=== PATIENT | male | born 1960 | race Caucasian/White ===

== ENCOUNTER 2017-08-31 06:59 | Day surgery (SDC) | payer OTHER ==
[2017-08-30 16:58] VITALS: BMI 22.4
[2017-08-31] MEDS ORDERED: Lidocaine 1% (PF) 30 ML VIAL ONE (08:44)
[2017-08-31] MEDS ORDERED: Fentanyl 100 MCG/2 ML VIAL ONE (09:13)
[2017-08-31] MEDS ORDERED: Midazolam HCl 2 mg/2 ml Vial ONE (09:13)
[2017-08-31] MEDS ORDERED: Dexamethasone 20 MG/5 ML VIAL ONE (14:40)
[2017-08-31] MEDS ORDERED: PROPOFOL 200 MG/20 ML VIAL ONE (14:40)
[2017-08-31] MEDS ORDERED: Lidocaine 1% PF 5 ML VIAL ONE (14:40)
[2017-08-31] MEDS ORDERED: Ondansetron HCl/PF 4 MG/2 ML Vial ONE (14:40)
[2017-08-31] MEDS ORDERED: Glycopyrrolate 0.2 MG/ML 5 ML SYRINGE ONE (14:40)
--- NOTE | 2017-09-01 11:06 | OP ---
DATE OF SERVICE: 08/31/2017 SERVICE: Pulmonary Medicine. PROCEDURE: Fiberoptic bronchoscopy with: 1. Visual airway inspection. 2. Bronchial wash from the right mainstem bronchus. 3. Endobronchial biopsies of the right mainstem endobronchial lesion. PREPROCEDURE DIAGNOSIS: Pulmonary mass. POSTPROCEDURE DIAGNOSIS: Pulmonary mass. PROCEDURE PAPER GOODS MACHINE OPERATOR: Jack Hernandez M.D. MEDICATIONS USED: For list of medications, please refer to anesthesia documentation. PREANESTHESIA ASSESSMENT: An H&P had been performed. The patient's medications and allergies were r eviewed. Informed consent was obtained after discussing the risks, benefits, and rationale for perfo rming the procedure as well as alternative options. DESCRIPTION OF PROCEDURE: A timeout was performed, identifying the correct procedure and patient wit h name and date of . A diagnostic fiberoptic bronchoscope was introduced through the 8.0 endotr acheal tube. The bronchoscope was advanced into the trachea where a tracheobronchial tree inspection was carried out. There was clear identification of the left upper lobe, lingula, left lower lobe. The right mainstem bronchus was completely obliterated by an endobronchial mass. Multiple endobronch ial biopsies were obtained at this location. Significant wash was obtained. Through our biopsies, a very large piece of this tumor was successfully removed. I opened up the right bronchus intermedius . The distal segments seemed to be intact. The right upper lobe was completely obliterated by a mas s. I could not pass any instruments distal to it. Hemostasis was verified and bronchoscope was subs equently removed from the patient. FINDINGS: 1. Large endobronchial mass obliterated the right mainstem bronchus. After debulking, the RBI was i ntact, but the right upper lobe had a dense mass in it that could not pass instruments distal to it. 2. Secretions were thick and minimal. SPECIMENS OBTAINED: 1. BAL and gram stain on the right bronchial wash. 2. Cytology on bronchial wash. 3. Endobronchial biopsy. COMPLICATIONS: None. ESTIMATED BLOOD LOSS: 10 mL. FLUOROSCOPY TIME: None. DISPOSITION: Patient will be discharged home with post-procedure instructions. He will return to [facility] as previously directed.
== END 2017-08-31 12:05 | disposition home or self-care (01) ==
LOC: SDC 06:59
PROVIDERS: ATTEND Internal Medicine
PROC: 0B9D8ZX Drainage of Right Middle Lung Lobe, Via Natural or Artificial Opening Endoscopic, Diagnostic (ICD-10-PCS; principal; 2017-08-31)
PROC: 0BB38ZX Excision of Right Main Bronchus, Via Natural or Artificial Opening Endoscopic, Diagnostic (ICD-10-PCS; principal; 2017-08-31)
DX: C34.02 Malignant neoplasm of left main bronchus (principal); Z79.899 Other long term (current) drug therapy
CPT/HCPCS: 87070; 87077; 87205; 88112; 88305; 88313; 88341; 88342; J1100; J2001; J2250; J2405; J2704; J3010; J7620

== ENCOUNTER 2017-12-15 10:05 | Outpatient (CLI) | payer OTHER ==
--- NOTE | 2017-12-15 12:25 | PET ---
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 TECHNIQUE: A PET CT was performed from the skull base through the mid thigh after administration of 15.8 mCi F1 8-FDG. FINDINGS: There is volume loss in the right thorax compared to the left. This is likely secondary to postobstru ctive atelectasis secondary to a mass within the right mainstem bronchus. This mass is visualized and is hypermetabolic with a max SUV value of 14.2. There are enlarged right mediastinal lymph nodes. Th e largest is seen in the right pretracheal location and has a max SUV value of 9.0. There are areas o f consolidation in the right lung. In the right apex, this area of consolidation has a max SUV value of 3.0. In the right lower lobe, this area of consolidation has a max SUV value of 3.7. No pleural effusion is seen. No hypermetabolic left pulmonary masses are seen. No hypermetabolic or suspicious lesions are seen in the neck. No suspicious or hypermetabolic lesions are seen in the abdomen or pelvis. There is hypermetabolic activity in the right aspect of the scrotum with a max SUV value of 2.5. This is nonspecific. The patient appears to have a hydrocele. No suspicious areas of hypermetabolic activity are seen within the bones. Degenerative changes are se en in the spine. IMPRESSION: 1. There is a right bronchial mass with metastatic disease to right mediastinal lymph nodes. There a re areas of hypermetabolic activity within the right upper lobe and right lower lobe. This may repres ent postobstructive infection or spread of malignancy to the upper and lower lobes. 2. Nonspecific hypermetabolic activity in the scrotum. A scrotal ultrasound is recommended for [facility] evaluation. POS: [facility]
== END 2017-12-15 10:06 | disposition home or self-care (01) ==
LOC: PET 10:05
PROVIDERS: ATTEND Internal Medicine Medical Oncology
DX: C34.90 Malignant neoplasm of unspecified part of unspecified bronchus or lung (principal); C77.9 Secondary and unspecified malignant neoplasm of lymph node, unspecified; J98.09 Other diseases of bronchus, not elsewhere classified
CPT/HCPCS: 78815; A9552

== ENCOUNTER 2017-12-19 07:51 | Outpatient (CLI) | payer OTHER ==
[2017-12-19] MEDS ORDERED: Gadobenate Dimeglumine 529 MG/1 ML (20ML VIAL) ONE (09:00)
--- NOTE | 2017-12-19 10:32 | MRI ---
BRAIN MRI WITH AND WITHOUT CONTRAST: HISTORY: Squamous cell carcinoma of the lung. Evaluate for brain metastases. COMPARISON: None. TECHNIQUE: A brain MRI is performed with and without intravenous Gadolinium administration. Multisequential, mu ltiplanar imaging is performed. FINDINGS: No hemorrhage on the axial gradient echo sequence. No parenchymal mass, mass effect, or midline shif t. Brain volume is age appropriate. Cortical burciaga white matter differentiation is preserved. Ventricles and sulci are patent and symmetric. The central arterial flow voids are maintained. Absent restricted diffusion. The calvarium appears to have a normal marrow signal intensity. Midline brain parenchymal structures are unremarkable. No significant T2 or FLAIR white matter hyperintensities. Mild mucosal thickening of the paranasal sinuses. Adequate mastoid air cell aeration. No pathologic enhancement of the brain parenchyma. IMPRESSION: 1. Mild mucosal thickening of the sinuses. 2. No pathologic enhancement of the brain parenchyma. POS: [facility]
== END 2017-12-19 07:52 | disposition home or self-care (01) ==
LOC: SCSMRI 07:51
PROVIDERS: ATTEND Internal Medicine Hematology & Oncology
DX: C34.01 Malignant neoplasm of right main bronchus (principal); J34.89 Other specified disorders of nose and nasal sinuses
CPT/HCPCS: 70553; A9579

== ENCOUNTER 2018-01-08 08:46 | Day surgery (SDC) | payer SELFPAY ==
[2018-01-08] MEDS ORDERED: Sodium Chloride 0.9% 30 ML ONE (09:17)
[2018-01-08] MEDS ORDERED: SODIUM CHLORIDE 0.9% IV SCH (09:30)
[2018-01-08] MEDS ORDERED: CISPLATIN IV SCH (09:30)
[2018-01-08] MEDS ORDERED: Dexamethasone 20 MG in Sodium Chloride 0.9% 50 ML IVPB SCH (09:30)
[2018-01-08] MEDS ORDERED: Palonosetron HCl 0.25 MG in Sodium Chloride 0.9% 50 ML IVPB SCH (09:30)
[2018-01-08] MEDS ORDERED: MANNITOL IV SCH (09:30)
[2018-01-08] MEDS ORDERED: SODIUM CHLORIDE 0.9% IVPB SCH (09:45)
[2018-01-08] MEDS ORDERED: ETOPOSIDE IVPB SCH (09:45)
[2018-01-08] MEDS ORDERED: Fosaprepitant Dimeglumine 150 MG in Sodium Chloride 0.9% 250 ML 150 ML IVPB SCH (09:45)
[2018-01-08] MEDS ORDERED: Dexamethasone Sod Phosphate 20 MG in Sodium Chloride 0.9% 50 ML IVPB SCH (10:15)
[2018-01-08 11:29] VITALS: BP 141/82; TEMP 98.2
== END 2018-01-08 17:19 | disposition home or self-care (01) ==
LOC: ONC/OP 08:46
PROVIDERS: ATTEND Internal Medicine Hematology & Oncology
DX: Z51.11 Encounter for antineoplastic chemotherapy (principal); C34.01 Malignant neoplasm of right main bronchus; Z87.891 Personal history of nicotine dependence; Z79.899 Other long term (current) drug therapy
CPT/HCPCS: 96366; 96375; 96413; 96415; 96417; A4216; J1100; J1453; J2150; J2469; J3480; J7050; J9060; J9181

== ENCOUNTER 2018-01-09 09:47 | Day surgery (SDC) | payer OTHER, SELFPAY ==
[2018-01-09] MEDS ORDERED: SODIUM CHLORIDE 0.9% IVPB SCH (10:00)
[2018-01-09] MEDS ORDERED: ETOPOSIDE IVPB SCH (10:00)
[2018-01-09 10:40] VITALS: BP 144/79; TEMP 98.1
== END 2018-01-09 13:53 | disposition home or self-care (01) ==
LOC: ONC/OP 09:47
PROVIDERS: ATTEND Internal Medicine
DX: Z51.11 Encounter for antineoplastic chemotherapy (principal); C34.01 Malignant neoplasm of right main bronchus; Z79.899 Other long term (current) drug therapy
CPT/HCPCS: 96413; J7050; J9181

== ENCOUNTER 2018-01-10 09:45 | Day surgery (SDC) | payer OTHER, SELFPAY ==
[2018-01-10] MEDS ORDERED: Sodium Chloride 0.9% 20 ML ONE (09:49)
[2018-01-10] MEDS ORDERED: SODIUM CHLORIDE 0.9% IVPB SCH (10:00)
[2018-01-10] MEDS ORDERED: ETOPOSIDE IVPB SCH (10:00)
[2018-01-10 10:58] VITALS: BP 134/72; TEMP 98.3
== END 2018-01-10 13:06 | disposition home or self-care (01) ==
LOC: ONC/OP 09:45
PROVIDERS: ATTEND Internal Medicine
DX: Z51.11 Encounter for antineoplastic chemotherapy (principal); C34.01 Malignant neoplasm of right main bronchus; Z79.899 Other long term (current) drug therapy
CPT/HCPCS: 96413; A4216; J7050; J9181

== ENCOUNTER 2018-01-11 09:56 | Day surgery (SDC) | payer OTHER, SELFPAY ==
[2018-01-11] MEDS ORDERED: Sodium Chloride 0.9% 20 ML ONE (10:01)
[2018-01-11 10:06] VITALS: BP 153/82; TEMP 98.1
[2018-01-11] MEDS ORDERED: SODIUM CHLORIDE 0.9% IVPB SCH ×2 (10:15)
[2018-01-11] MEDS ORDERED: ONDANSETRON IVPB SCH (10:15)
[2018-01-11] MEDS ORDERED: DEXAMETHASONE IVPB SCH (10:15)
[2018-01-11] MEDS ORDERED: ETOPOSIDE IVPB SCH (10:15)
[2018-01-11] MEDS ORDERED: Dexamethasone Sod Phosphate 20 MG, Ondansetron 2MG/ML MDV 10 MG in Sodium Chloride 0.9%... IVPB SCH (11:00)
== END 2018-01-11 19:26 | disposition home or self-care (01) ==
LOC: ONC/OP 09:56
PROVIDERS: ATTEND Internal Medicine
DX: Z51.11 Encounter for antineoplastic chemotherapy (principal); C34.01 Malignant neoplasm of right main bronchus
CPT/HCPCS: 96375; 96413; J1100; J2405; J7050; J9181

== ENCOUNTER 2018-01-12 11:28 | Day surgery (SDC) | payer OTHER, SELFPAY ==
[2018-01-12] MEDS ORDERED: SODIUM CHLORIDE 0.9% IVPB SCH (11:30)
[2018-01-12] MEDS ORDERED: ETOPOSIDE IVPB SCH (11:30)
[2018-01-12] MEDS ORDERED: Ondansetron 2MG/ML MDV 10 MG in Sodium Chloride 0.9% 50 ML IVPB SCH (11:30)
[2018-01-12] MEDS ORDERED: Sodium Chloride 0.9% 20 ML ONE (12:56)
[2018-01-12 13:08] VITALS: BP 125/74; TEMP 98.3
== END 2018-01-12 13:25 | disposition home or self-care (01) ==
LOC: ONC/OP 11:28
PROVIDERS: ATTEND Internal Medicine
DX: Z51.11 Encounter for antineoplastic chemotherapy (principal); C34.01 Malignant neoplasm of right main bronchus
CPT/HCPCS: 96367; 96413; J2405; J7050; J9181

== ENCOUNTER 2018-01-15 09:57 | Day surgery (SDC) | payer OTHER, SELFPAY ==
[2018-01-15] MEDS ORDERED: Sodium Chloride 0.9% 20 ML ONE (10:01)
[2018-01-15] MEDS ORDERED: CISPLATIN IV SCH (10:15)
[2018-01-15] MEDS ORDERED: Dexamethasone 20 MG in Sodium Chloride 0.9% 50 ML IVPB SCH (10:15)
[2018-01-15] MEDS ORDERED: PALONOSETRON HCL 0.05 MG/ML 5 ML VIAL IVP SCH (10:15)
[2018-01-15] MEDS ORDERED: Fosaprepitant Dimeglumine 150 MG in Sodium Chloride 0.9% 250 ML 150 ML IVPB SCH (10:15)
[2018-01-15] MEDS ORDERED: SODIUM CHLORIDE 0.9% IV SCH (10:15)
[2018-01-15] MEDS ORDERED: MANNITOL IV SCH (10:15)
[2018-01-15] MEDS ORDERED: POTASSIUM CHLORIDE IVPB SCH (10:15)
[2018-01-15] MEDS ORDERED: SODIUM CHLORIDE 0.9% IVPB SCH (10:15)
[2018-01-15 10:16] VITALS: BP 119/77; TEMP 99.9
[2018-01-15] MEDS ORDERED: Dexamethasone Sod Phosphate 20 MG in Sodium Chloride 0.9% 50 ML IVPB SCH (10:30)
== END 2018-01-15 16:50 | disposition home or self-care (01) ==
LOC: ONC/OP 09:57
PROVIDERS: ATTEND Internal Medicine
DX: Z51.11 Encounter for antineoplastic chemotherapy (principal); C34.01 Malignant neoplasm of right main bronchus; Z79.899 Other long term (current) drug therapy
CPT/HCPCS: 96366; 96367; 96375; 96413; 96415; J1100; J1453; J2150; J2469; J3480; J7050; J9060

== ENCOUNTER 2018-02-05 09:21 | Day surgery (SDC) | payer OTHER, SELFPAY ==
[2018-02-05] MEDS ORDERED: MANNITOL IV SCH (09:45)
[2018-02-05] MEDS ORDERED: CISPLATIN IV SCH (09:45)
[2018-02-05] MEDS ORDERED: SODIUM CHLORIDE 0.9% IV SCH (09:45)
[2018-02-05] MEDS ORDERED: Dexamethasone 10 MG/ML VIAL SLOW IVP SCH (09:45)
[2018-02-05] MEDS ORDERED: SODIUM CHLORIDE 0.9% IVPB SCH (09:45)
[2018-02-05] MEDS ORDERED: ETOPOSIDE IVPB SCH (09:45)
[2018-02-05] MEDS ORDERED: PALONOSETRON HCL 0.05 MG/ML 5 ML VIAL IVP SCH (09:45)
[2018-02-05 09:51] VITALS: BP 134/90; TEMP 98.7
[2018-02-06] MEDS ORDERED: SODIUM CHLORIDE 0.9% IVPB SCH (10:00)
[2018-02-06] MEDS ORDERED: ETOPOSIDE IVPB SCH (10:00)
== END 2018-02-05 16:59 | disposition home or self-care (01) ==
LOC: ONC/OP 09:21
PROVIDERS: ATTEND Internal Medicine Hematology & Oncology
DX: Z51.11 Encounter for antineoplastic chemotherapy (principal); C34.01 Malignant neoplasm of right main bronchus; Z79.899 Other long term (current) drug therapy
CPT/HCPCS: 96361; 96367; 96375; 96413; 96417; J1100; J1453; J2150; J2469; J7050; J9060; J9181

== ENCOUNTER 2018-02-06 09:37 | Day surgery (SDC) | payer OTHER ==
[2018-02-06] MEDS ORDERED: SODIUM CHLORIDE 0.9% IVPB SCH (09:45)
[2018-02-06] MEDS ORDERED: ETOPOSIDE IVPB SCH (09:45)
[2018-02-06] MEDS ORDERED: Sodium Chloride 0.9% 20 ML ONE (10:09)
[2018-02-06 10:22] VITALS: BP 134/84; TEMP 98.1
== END 2018-02-06 14:55 | disposition home or self-care (01) ==
LOC: ONC/OP 09:37
PROVIDERS: ATTEND Internal Medicine Hematology & Oncology
DX: Z51.11 Encounter for antineoplastic chemotherapy (principal); C34.01 Malignant neoplasm of right main bronchus; Z79.899 Other long term (current) drug therapy
CPT/HCPCS: 96413; J7050; J9181

== ENCOUNTER 2018-02-07 08:34 | Day surgery (SDC) | payer OTHER ==
[2018-02-07 08:42] VITALS: BP 144/85; TEMP 98.6
[2018-02-07] MEDS ORDERED: SODIUM CHLORIDE 0.9% IVPB SCH (09:00)
[2018-02-07] MEDS ORDERED: ETOPOSIDE IVPB SCH (09:00)
== END 2018-02-07 11:38 | disposition home or self-care (01) ==
LOC: ONC/OP 08:34
PROVIDERS: ATTEND Internal Medicine Hematology & Oncology
DX: Z51.11 Encounter for antineoplastic chemotherapy (principal); C34.01 Malignant neoplasm of right main bronchus
CPT/HCPCS: 96413; J7050; J9181

== ENCOUNTER 2018-02-08 09:06 | Day surgery (SDC) | payer OTHER ==
[2018-02-08] MEDS ORDERED: Dexamethasone 20 MG/5 ML VIAL SLOW IVP SCH (09:45)
[2018-02-08] MEDS ORDERED: Ondansetron PF 4 MG/2 ML Vial SLOW IVP SCH (09:45)
[2018-02-08] MEDS ORDERED: ETOPOSIDE IVPB SCH (09:45)
[2018-02-08] MEDS ORDERED: SODIUM CHLORIDE 0.9% IVPB SCH (09:45)
[2018-02-08 09:47] VITALS: BP 152/82; TEMP 98.4
[2018-02-08] MEDS ORDERED: Dexamethasone 10 MG/ML VIAL SLOW IVP SCH (10:15)
[2018-02-08] MEDS ORDERED: Sodium Chloride 0.9% 40 ML ONE (10:18)
== END 2018-02-08 11:53 | disposition home or self-care (01) ==
LOC: ONC/OP 09:06
PROVIDERS: ATTEND Internal Medicine Hematology & Oncology
DX: Z51.11 Encounter for antineoplastic chemotherapy (principal); C34.01 Malignant neoplasm of right main bronchus
CPT/HCPCS: 96375; 96413; J1100; J2405; J7050; J9181

== ENCOUNTER 2018-02-09 08:27 | Day surgery (SDC) | payer OTHER ==
[2018-02-09] MEDS ORDERED: Sodium Chloride 0.9% 20 ML ONE (08:36)
[2018-02-09] MEDS ORDERED: SODIUM CHLORIDE 0.9% IVPB SCH (08:45)
[2018-02-09] MEDS ORDERED: Ondansetron 2MG/ML MDV 10 MG in Sodium Chloride 0.9% 50 ML IVPB SCH (08:45)
[2018-02-09] MEDS ORDERED: ETOPOSIDE IVPB SCH (08:45)
[2018-02-09 16:43] VITALS: BP 118/72; TEMP 98.5
== END 2018-02-09 16:43 | disposition home or self-care (01) ==
LOC: ONC/OP 08:27
PROVIDERS: ATTEND Internal Medicine Hematology & Oncology
DX: Z51.11 Encounter for antineoplastic chemotherapy (principal); C34.01 Malignant neoplasm of right main bronchus
CPT/HCPCS: 96375; 96413; J2405; J7050; J9181

== ENCOUNTER 2018-02-12 08:26 | Day surgery (SDC) | payer OTHER ==
[2018-02-12] MEDS ORDERED: Sodium Chloride 0.9% 40 ML ONE (08:31)
[2018-02-12 09:26] LABS: #Eosinphils 0.1 thou/uL (0.0-0.7); #Lymphocytes 0.3 thou/uL (1.20-3.40); #Neutrophils 4.6 thou/uL (1.40-6.50); %Basophils 0.1 % (0.0-1.0); %Eosinophils 1.4 % (0.0-10.0); %Lymphocytes 6.4 % (21.0-51.0); %Monocytes 0.4 % (0.0-10.0); %Neutrophils 91.6 % (42.0-75.0); Hemoglobin 13.4 g/dL (14.0-18.0); Mean Corpuscular HGB CONC 33.4 g/dL (32.0-36.0); Mean Corpuscular Hemoglobin 29.9 pg (27.0-31.0); Mean Corpuscular Volume 89.6 fL (78.0-98.0); Mean Platelet Volume 5.8 fL (7.4-10.4); Platelet Count 389 thou/uL (130-400); RBC Distribution Width 12.3 % (11.5-14.5); Red Blood Cell (RBC) Count 4.49 mill/uL (4.70-6.10)
[2018-02-12 09:42] LABS: ALT (SGPT) 22 U/L (8-55); AST (SGOT) 14 U/L (5-34); Albumin 4.2 g/dL (3.5-5.0); Alkaline Phosphatase 107 U/L (40-150); Anion Gap 14 mmol/L (10-20); BUN (Urea Nitrogen) 19 mg/dL (8.4-25.7); Bilirubin, Total 0.7 mg/dL (0.2-1.2); Calc. Creatinine Clearance 0 mL/min (70-130); Calcium 9.6 mg/dL (7.8-10.44); Carbon Dioxide 25 mmol/L (22-29); Chloride 103 mmol/L (98-107); Estimated GFR-MDRD 68; Globulin 2.9 g/dL (2.4-3.5); Glucose 108 mg/dL (70-105); LDH 156 U/L (125-220); Potassium 3.9 mmol/L (3.5-5.1); Protein, Total 7.1 g/dL (6.0-8.3); Sodium 138 mmol/L (136-145); Uric Acid 5.6 mg/dL (3.5-7.2)
[2018-02-12] MEDS ORDERED: PALONOSETRON HCL 0.05 MG/ML 5 ML VIAL IVP SCH (09:45)
[2018-02-12] MEDS ORDERED: Dexamethasone 10 MG/ML VIAL SLOW IVP SCH (09:45)
[2018-02-12] MEDS ORDERED: CISPLATIN IV SCH (10:30)
[2018-02-12] MEDS ORDERED: SODIUM CHLORIDE 0.9% IV SCH (10:30)
[2018-02-12] MEDS ORDERED: MANNITOL IV SCH (10:30)
[2018-02-12 12:50] VITALS: BP 122/83; TEMP 98.1
== END 2018-02-12 15:09 | disposition home or self-care (01) ==
LOC: ONC/OP 08:26
PROVIDERS: ATTEND Internal Medicine Hematology & Oncology
DX: Z51.11 Encounter for antineoplastic chemotherapy (principal); C34.01 Malignant neoplasm of right main bronchus
CPT/HCPCS: 80053; 83615; 84550; 85025; 96367; 96375; 96413; 96415; J1100; J1453; J2150; J2469; J3480; J7050; J9060

== ENCOUNTER 2018-03-21 13:29 | Day surgery (SDC) | payer OTHER ==
[2018-03-21 13:53] VITALS: BP 158/84; TEMP 98.2
[2018-03-21] MEDS ORDERED: SODIUM CHLORIDE 0.9% IV SCH (14:00)
[2018-03-21] MEDS ORDERED: DURVALUMAB IV SCH (14:00)
== END 2018-03-21 15:36 | disposition home or self-care (01) ==
LOC: ONC/OP 13:29
PROVIDERS: ATTEND Internal Medicine Hematology & Oncology
DX: Z51.11 Encounter for antineoplastic chemotherapy (principal); C34.01 Malignant neoplasm of right main bronchus; Z87.891 Personal history of nicotine dependence; Z79.899 Other long term (current) drug therapy
CPT/HCPCS: 96413; C9492; J7050

== ENCOUNTER 2018-04-02 08:21 | Day surgery (SDC) | payer OTHER, SELFPAY ==
[2018-04-02] MEDS ORDERED: Sodium Chloride 0.9% 30 ML ONE (08:30)
[2018-04-02] MEDS ORDERED: SODIUM CHLORIDE 0.9% IV SCH (09:30)
[2018-04-02] MEDS ORDERED: DURVALUMAB IV SCH (09:30)
== END 2018-04-02 11:36 | disposition home or self-care (01) ==
LOC: ONC/OP 08:21
PROVIDERS: ATTEND Internal Medicine Hematology & Oncology
DX: Z51.12 Encounter for antineoplastic immunotherapy (principal); C34.01 Malignant neoplasm of right main bronchus
CPT/HCPCS: 96413; C9492; J7050

== ENCOUNTER 2018-04-16 09:49 | Day surgery (SDC) | payer OTHER ==
[2018-04-16] MEDS ORDERED: Sodium Chloride 0.9% 20 ML ONE (10:02)
[2018-04-16] MEDS ORDERED: SODIUM CHLORIDE 0.9% IV SCH (10:30)
[2018-04-16] MEDS ORDERED: DURVALUMAB IV SCH (10:30)
[2018-04-16 10:43] VITALS: BP 165/79; TEMP 97.6
== END 2018-04-16 12:59 | disposition home or self-care (01) ==
LOC: ONC/OP 09:49
PROVIDERS: ATTEND Internal Medicine Hematology & Oncology
DX: Z51.12 Encounter for antineoplastic immunotherapy (principal); C34.01 Malignant neoplasm of right main bronchus; Z87.891 Personal history of nicotine dependence
CPT/HCPCS: 99211; C9492; G0463; J7050; J9173

== ENCOUNTER 2018-04-18 08:07 | Day surgery (SDC) | payer OTHER ==
[2018-04-18] MEDS ORDERED: Sodium Chloride 0.9% 20 ML ONE (08:13)
[2018-04-18] MEDS ORDERED: SODIUM CHLORIDE 0.9% IV SCH ×2 (08:15→08:30)
[2018-04-18] MEDS ORDERED: DURVALUMAB IV SCH ×2 (08:15→08:30)
[2018-04-18 10:33] VITALS: BP 103/70; TEMP 98.6
== END 2018-04-18 10:41 | disposition home or self-care (01) ==
LOC: ONC/OP 08:07
PROVIDERS: ATTEND Internal Medicine Hematology & Oncology
DX: Z51.12 Encounter for antineoplastic immunotherapy (principal); C34.01 Malignant neoplasm of right main bronchus; Z79.899 Other long term (current) drug therapy; Z87.891 Personal history of nicotine dependence
CPT/HCPCS: 96413; C9492; J7050

== ENCOUNTER 2018-04-30 08:22 | Day surgery (SDC) | payer OTHER ==
[2018-04-30] MEDS ORDERED: Sodium Chloride 0.9% 20 ML ONE (08:33)
[2018-04-30] MEDS ORDERED: SODIUM CHLORIDE 0.9% IV SCH (09:15)
[2018-04-30] MEDS ORDERED: DURVALUMAB IV SCH (09:15)
== END 2018-04-30 09:51 | disposition home or self-care (01) ==
LOC: ONC/OP 08:22
PROVIDERS: ATTEND Internal Medicine Hematology & Oncology
DX: Z51.12 Encounter for antineoplastic immunotherapy (principal); C34.01 Malignant neoplasm of right main bronchus
CPT/HCPCS: C9492; J7050; J9173

== ENCOUNTER 2018-05-02 08:16 | Day surgery (SDC) | payer OTHER ==
[2018-05-02] MEDS ORDERED: Sodium Chloride 0.9% 20 ML ONE (08:27)
[2018-05-02 08:37] VITALS: BP 114/77; TEMP 98.7
[2018-05-02] MEDS ORDERED: DURVALUMAB IV SCH (09:00)
[2018-05-02] MEDS ORDERED: SODIUM CHLORIDE 0.9% IV SCH (09:00)
== END 2018-05-02 12:42 | disposition home or self-care (01) ==
LOC: ONC/OP 08:16
PROVIDERS: ATTEND Internal Medicine Hematology & Oncology
DX: Z51.12 Encounter for antineoplastic immunotherapy (principal); C34.01 Malignant neoplasm of right main bronchus; C34.11 Malignant neoplasm of upper lobe, right bronchus or lung; Z87.891 Personal history of nicotine dependence; Z79.899 Other long term (current) drug therapy
CPT/HCPCS: 96413; C9492; J7050; J9173

== ENCOUNTER 2018-05-16 01:15 | Day surgery (SDC) | payer OTHER ==
[2018-05-16] MEDS ORDERED: SODIUM CHLORIDE 0.9% IV SCH (02:45)
[2018-05-16] MEDS ORDERED: DURVALUMAB IV SCH (02:45)
[2018-05-16] MEDS ORDERED: Sodium Chloride 0.9% 20 ML ONE (08:31)
[2018-05-16 09:36] VITALS: BP 116/68; TEMP 98.4
== END 2018-05-16 11:47 | disposition home or self-care (01) ==
LOC: ONC/OP 01:15
PROVIDERS: ATTEND Internal Medicine Hematology & Oncology
DX: Z51.11 Encounter for antineoplastic chemotherapy (principal); C34.01 Malignant neoplasm of right main bronchus
CPT/HCPCS: 96413

== ENCOUNTER 2018-05-25 08:55 | Outpatient (CLI) | payer OTHER ==
--- NOTE | 2018-05-25 11:11 | CT ---
CHEST CT WITH CONTRAST: HISTORY: Lung cancer. Status post chemotherapy and radiation therapy. The patient is now on maintenance immu notherapy. Evaluate for response to treatment. COMPARISON: 06/20/2016 [facility]. Note, there is a request to compare from a study from September 14, 2017. How ever, this study does not appear to be on the [facility] PACS. CORRELATION: PET imaging 12/15/2017. FINDINGS: There are posttreatment changes compatible with a right upper lobectomy. There is diminished volume in the right hemithorax. There are extensive cystic changes and bronchiectasis in the remaining righ t lung parenchyma. There is consolidation involving the superior aspect of the remaining right lung. There is abnormal soft tissue attenuation in the right paratracheal region and right hilum. There i s corresponding FDG avidity. Findings may represent residual tumor versus post treatment change. He art size is within normal limits. No pericardial fluid. Central pulmonary arteries have appropriate enhancement and luminal diameter. Thoracic aorta and upper abdominal aorta have a normal luminal di ameter. Unremarkable visualized solid organs. Compensatory hyperinflation of the left lung. Emphysematous changes in the left upper lobe. There i s a spiculated nodule in the left lower lobe measuring 1.0 x 1.1 cm. The nodule has developed since the PET scan from 12/15/2017. No lytic or blastic lesions in the osseous structures. IMPRESSION: 1. Post treatment changes involving the right hemithorax. Increased soft tissue density is presumed to represent areas of scar and/or post treatment change. Residual tumor in this region cannot be ex cluded. There is interval development of a nodule in the left lower lobe, worrisome for metastases u ntil proven otherwise. Nodule was not appreciated on the CT used for attenuation correction from a P ET scan of 12/15/2017. 2. Abnormal soft tissue attenuation of the right hilum and right paratracheal region with correspond ing fluorodeoxyglucose avidity. Findings are presumed to represent post-treatment change versus resi dual tumor. POS: [facility]
[2018-05-25] MEDS ORDERED: ISOVUE-370 76%-LOCM 1 ML ONE (16:36)
== END 2018-05-25 08:56 | disposition home or self-care (01) ==
LOC: BICCT 08:55
PROVIDERS: ATTEND Internal Medicine Hematology & Oncology
DX: C34.90 Malignant neoplasm of unspecified part of unspecified bronchus or lung (principal)
CPT/HCPCS: 71260; Q9966

== ENCOUNTER 2018-05-30 00:17 | Day surgery (SDC) | payer OTHER ==
[2018-05-30] MEDS ORDERED: SODIUM CHLORIDE 0.9% IV SCH (02:30)
[2018-05-30] MEDS ORDERED: DURVALUMAB IV SCH (02:30)
[2018-05-30] MEDS ORDERED: Sodium Chloride 0.9% 20 ML ONE (10:13)
[2018-05-30 10:29] VITALS: BP 141/84; TEMP 98.3
== END 2018-05-30 12:01 | disposition home or self-care (01) ==
LOC: ONC/OP 00:17
PROVIDERS: ATTEND Internal Medicine Hematology & Oncology
DX: Z51.11 Encounter for antineoplastic chemotherapy (principal); C34.01 Malignant neoplasm of right main bronchus
CPT/HCPCS: 96413

== ENCOUNTER 2018-06-07 11:05 | Outpatient (CLI) | payer OTHER ==
--- NOTE | 2018-06-07 14:27 | PET ---
PET CT FROM SKULL BASE THROUGH MID THIGHS: INDICATION: History of right lung cancer. RADIOPHARMACEUTICAL: 11.5 mCi F18-FDG IV. TECHNIQUE: PET CT images were obtained from the skull base through the mid thighs following IV administration of the radiopharmaceutical. The CT images were obtained for attenuation correction purposes only. Exam is compared to a prior CT of the thorax performed at [facility] on 05/05 05/22. Comparison is also made with prior CT of the thorax from [facility] dated 06/20. FINDINGS: The biodistribution for the examination appears acceptable. Head/Neck: No hypermetabolic lymphadenopathy or mass is seen within the head or neck region. Thorax: Again seen is significant post therapy changes involving the right hemithorax. There is marked soft t issue prominence seen surrounding the right mainstem bronchus, as well as the lobar and segmental bra nches of the right upper lobe and right middle lobe. There is extensive bronchiectasis seen within th e right middle lobe and right lower lobe. There is scattered emphysema. There is a hypermetabolic right paratracheal lymph node that has decreased in size from the compariso n PET CT dated 12/15/17, where it previously measured 1.5 cm with a peak uptake of 8.97. The lymph no de now measures 9.5 mm with a peak uptake of 3.27 and a mean uptake of 2.64. No additional hypermetab olic lymph node is evident. There is prominent subsegmental volume loss within the right upper lobe. There are areas of subsegmen samreen volume loss within the left lower lobe. There is a new pulmonary nodule within the superior segment of the left lower lobe measuring 7.0 mm w ithout visible FDG uptake. No pleural effusion is evident. Abdomen/Pelvis: No hypermetabolic mass or lymphadenopathy is evident. There is a small gallstone within the gallbladd er. There is a small hypodensity seen within the central posterior right hepatic lobe that is difficu lt to fully characterize, but is stable since 2017 with no suspicious hypermetabolic uptake, likely r eflecting a small cyst. Skin/Osseous Structures: No hypermetabolic skin or osseous lesions identified. IMPRESSION: 1. Findings consistent with response to therapy. There is a significant improvement in the extent of hypermetabolic activity involving the right mainstem bronchus, as well as the right middle lobe bron chus. No residual hypermetabolic activity is noted within these regions. There is prominent soft tiss ue thickening likely related to scar from therapy. The extensive bronchiectasis of the right upper lo be and right middle lobe are again noted. Scattered emphysema is similar appearing. The hypermetaboli c right paratracheal lymph node has significantly reduced in prominence. No hypermetabolic activity i s seen within the subcarinal lymph node previously seen. 2. New 7 mm pulmonary nodule in the left lower lobe. This is below PET resolution threshold. Would r ecommend a short-term CT follow-up in 6-8 weeks to evaluate this pulmonary nodule. 3. No evidence of metastatic disease within the abdomen and pelvis, or skin or osseous structures. POS: [facility]
== END 2018-06-07 11:06 | disposition home or self-care (01) ==
LOC: PET 11:05
PROVIDERS: ATTEND Internal Medicine Hematology & Oncology
DX: C34.91 Malignant neoplasm of unspecified part of right bronchus or lung (principal); R91.1 Solitary pulmonary nodule
CPT/HCPCS: 78815; A9552

== ENCOUNTER 2018-06-13 08:30 | Day surgery (SDC) | payer OTHER, SELFPAY ==
[~2018-06-13 08:30] MED LIST: DURVALUMAB IV SCH; SODIUM CHLORIDE 0.9% IV SCH
[2018-06-13] MEDS ORDERED: Sodium Chloride 0.9% 20 ML ONE (08:49)
[2018-06-13 09:01] VITALS: BP 129/76; TEMP 98.4
== END 2018-06-13 14:58 | disposition home or self-care (01) ==
LOC: ONC/OP 08:30
PROVIDERS: ATTEND Internal Medicine Hematology & Oncology
DX: Z51.12 Encounter for antineoplastic immunotherapy (principal); C34.01 Malignant neoplasm of right main bronchus
CPT/HCPCS: 96413; C9492; J7050; J9173

== ENCOUNTER 2018-06-27 10:28 | Day surgery (SDC) | payer OTHER ==
[2018-06-27] MEDS ORDERED: Sodium Chloride 0.9% 20 ML ONE (10:33)
[2018-06-27 10:45] VITALS: BP 151/87; TEMP 98.6
== END 2018-06-27 13:10 | disposition home or self-care (01) ==
LOC: ONC/OP 10:28
PROVIDERS: ATTEND Internal Medicine Hematology & Oncology
DX: Z51.12 Encounter for antineoplastic immunotherapy (principal); C34.01 Malignant neoplasm of right main bronchus; Z87.891 Personal history of nicotine dependence
CPT/HCPCS: 96413

== ENCOUNTER 2018-07-18 09:19 | Day surgery (SDC) | payer OTHER ==
[2018-07-18 09:37] VITALS: BP 156/71; TEMP 98
[2018-07-18] MEDS ORDERED: DURVALUMAB IV SCH (09:45)
[2018-07-18] MEDS ORDERED: SODIUM CHLORIDE 0.9% IV SCH (09:45)
[2018-07-18] MEDS ORDERED: Sodium Chloride 0.9% 20 ML ONE (10:10)
== END 2018-07-18 11:24 | disposition home or self-care (01) ==
LOC: ONC/OP 09:19
PROVIDERS: ATTEND Internal Medicine Hematology & Oncology
DX: Z51.12 Encounter for antineoplastic immunotherapy (principal); C34.01 Malignant neoplasm of right main bronchus; Z79.899 Other long term (current) drug therapy
CPT/HCPCS: 96413

== ENCOUNTER 2018-08-02 09:54 | Outpatient (CLI) | payer OTHER ==
[~2018-08-02 09:54] MED LIST changes: -DURVALUMAB IV SCH; +ISOVUE-370 76%-LOCM 1 ML ONE; -SODIUM CHLORIDE 0.9% IV SCH
--- NOTE | 2018-08-02 11:27 | CT ---
CONTRAST ENHANCED CT IMAGES CHEST: DATE: 08/02/2018. COMPARISON: Comparison is made to a previous CT chest from 05/25/[address] from 06/07/2018. Contrast-enhanced CT images of the chest demonstrate significant right hemithorax volume loss with ar eas of parenchymal scarring and possible lobectomy. Right lower lobe interstitial fibrotic changes and bronchiectasis seen. Some right pleural thickenin g is seen. There is some compensatory expansion of the left lung with shift of the mediastinum from left to righ t. No evidence of lung parenchymal lesion seen. Previously noted left lower lobe nodular density has essentially resolved having decreased in size fr om May to June and having completely resolved since the June exam. Adrenal glands unremarkable. Small hypodense area is seen in the caudate lobe unchanged since the pr evious CT. Small gallstones seen in the gallbladder. No evidence of pancreatic abnormality seen. IMPRESSION: Areas of right lung scarring with resolved left lower lobe pulmonary parenchymal lesions. POS: [facility]
== END 2018-08-02 09:55 | disposition home or self-care (01) ==
LOC: BICCT 09:54
PROVIDERS: ATTEND Internal Medicine Hematology & Oncology
DX: C34.01 Malignant neoplasm of right main bronchus (principal); R91.1 Solitary pulmonary nodule; J98.4 Other disorders of lung
CPT/HCPCS: 71260; Q9966

== ENCOUNTER 2018-08-02 14:06 | Day surgery (SDC) | payer OTHER ==
[~2018-08-02 14:06] MED LIST changes: +DURVALUMAB IV SCH; -ISOVUE-370 76%-LOCM 1 ML ONE; +SODIUM CHLORIDE 0.9% IV SCH
[2018-08-02] MEDS ORDERED: Sodium Chloride 0.9% 20 ML ONE (14:47)
[2018-08-02 16:59] VITALS: BP 137/76; TEMP 97.8
== END 2018-08-02 16:59 | disposition home or self-care (01) ==
LOC: ONC/OP 14:06
PROVIDERS: ATTEND Internal Medicine Hematology & Oncology
DX: Z51.12 Encounter for antineoplastic immunotherapy (principal); C34.01 Malignant neoplasm of right main bronchus; Z79.899 Other long term (current) drug therapy
CPT/HCPCS: 96413

== ENCOUNTER 2018-08-17 08:40 | Day surgery (SDC) | payer OTHER ==
[2018-08-17 10:18] VITALS: BP 134/86; TEMP 97.9
== END 2018-08-17 16:45 | disposition home or self-care (01) ==
LOC: ONC/OP 08:40
PROVIDERS: ATTEND Internal Medicine Hematology & Oncology
DX: Z51.12 Encounter for antineoplastic immunotherapy (principal); C34.01 Malignant neoplasm of right main bronchus
CPT/HCPCS: 96413

== ENCOUNTER 2018-08-29 11:38 | Day surgery (SDC) | payer OTHER ==
[2018-08-29 12:20] VITALS: BP 139/86; TEMP 98.4
== END 2018-08-29 14:18 | disposition home or self-care (01) ==
LOC: ONC/OP 11:38
PROVIDERS: ATTEND Internal Medicine Hematology & Oncology
DX: Z51.11 Encounter for antineoplastic chemotherapy (principal); C34.01 Malignant neoplasm of right main bronchus
CPT/HCPCS: 96413

== ENCOUNTER 2018-09-13 09:13 | Day surgery (SDC) | payer OTHER ==
[2018-09-13] MEDS ORDERED: DURVALUMAB IV SCH (10:45)
[2018-09-13] MEDS ORDERED: SODIUM CHLORIDE 0.9% IV SCH (10:45)
[2018-09-13 11:42] VITALS: BP 134/63; TEMP 98.5
== END 2018-09-13 12:44 | disposition home or self-care (01) ==
LOC: ONC/OP 09:13
PROVIDERS: ATTEND Internal Medicine Hematology & Oncology
DX: Z51.12 Encounter for antineoplastic immunotherapy (principal); C34.01 Malignant neoplasm of right main bronchus
CPT/HCPCS: 96413

== ENCOUNTER 2018-09-26 11:32 | Day surgery (SDC) | payer OTHER ==
[2018-09-26 12:03] VITALS: BP 116/68; TEMP 98
== END 2018-09-26 13:37 | disposition home or self-care (01) ==
LOC: ONC/OP 11:32
PROVIDERS: ATTEND Internal Medicine Hematology & Oncology
DX: Z51.12 Encounter for antineoplastic immunotherapy (principal); C34.01 Malignant neoplasm of right main bronchus
CPT/HCPCS: 96413; C9492; J3490; J9173

== ENCOUNTER 2018-10-11 12:54 | Day surgery (SDC) | payer OTHER ==
[2018-10-11 13:19] VITALS: BP 163/76; TEMP 98.1
== END 2018-10-11 16:56 | disposition home or self-care (01) ==
LOC: ONC/OP 12:54
PROVIDERS: ATTEND Internal Medicine Hematology & Oncology
DX: Z51.12 Encounter for antineoplastic immunotherapy (principal); C34.01 Malignant neoplasm of right main bronchus
CPT/HCPCS: 96413

== ENCOUNTER 2018-10-24 10:56 | Day surgery (SDC) | payer SELFPAY ==
[2018-10-24] MEDS ORDERED: Sodium Chloride 0.9% 20 ML ONE (11:00)
[2018-10-24 11:06] VITALS: BP 127/76; TEMP 97.6
== END 2018-10-24 15:50 | disposition home or self-care (01) ==
LOC: ONC/OP 10:56
PROVIDERS: ATTEND Internal Medicine Hematology & Oncology
DX: Z51.12 Encounter for antineoplastic immunotherapy (principal); C34.01 Malignant neoplasm of right main bronchus
CPT/HCPCS: 96413

== ENCOUNTER 2018-11-06 08:56 | Outpatient (CLI) | payer OTHER ==
--- NOTE | 2018-11-06 09:45 | CT ---
EXAM: CT of the chest with contrast HISTORY: Lung cancer status post treatment with chemotherapy and radiation COMPARISON: 08/02/2018, 05/25/2018, 06/20/2016 TECHNIQUE: Multiple contiguous axial images were obtained in a CT the chest with contrast. Coronal re formats were performed. FINDINGS: HEART: Normal in size without focal cardiac abnormality MEDIASTINUM: No hilar or mediastinal lymphadenopathy. LUNGS: Volume loss is seen in the right thorax. There is cystic change and bronchiectasis in the righ t lung. This cystic change has slightly worsened in the right lower lobe. No new suspicious pulmonary mass is identified. Emphysematous changes are seen in the left lung. PLEURAL SPACE: No pneumothorax or pleural effusion. CHEST WALL SOFT TISSUES: Unremarkable OSSEOUS STRUCTURES: Degenerative changes in the spine. VISUALIZED SUBDIAPHRAGMATIC STRUCTURES: Stable small hypodensity in the caudate lobe of the liver. IMPRESSION: Posttreatment changes of the right thorax with slight worsening of the cystic change in the right low er lobe.
[2018-11-06] MEDS ORDERED: ISOVUE-370 76%-LOCM 1 ML ONE (14:46)
== END 2018-11-06 08:57 | disposition home or self-care (01) ==
LOC: BICCT 08:56
PROVIDERS: ATTEND Internal Medicine Hematology & Oncology
DX: C34.01 Malignant neoplasm of right main bronchus (principal)
CPT/HCPCS: 71260; Q9966

== ENCOUNTER 2018-11-07 10:02 | Day surgery (SDC) | payer SELFPAY ==
[~2018-11-07 10:02] MED LIST changes: +DURVALUMAB 500 MG, DURVALUMAB 240 MG in Sodium Chloride 0.9% 100 ML IV SCH
[2018-11-07] MEDS ORDERED: Sodium Chloride 0.9% 20 ML ONE (10:06)
[2018-11-07 10:27] VITALS: BP 103/73; TEMP 97.6
== END 2018-11-07 16:10 | disposition home or self-care (01) ==
LOC: ONC/OP 10:02
PROVIDERS: ATTEND Internal Medicine Hematology & Oncology
DX: Z51.12 Encounter for antineoplastic immunotherapy (principal); C34.01 Malignant neoplasm of right main bronchus
CPT/HCPCS: 96413; J3490; J9173

== ENCOUNTER 2018-11-21 11:35 | Day surgery (SDC) | payer SELFPAY ==
[~2018-11-21 11:35] MED LIST changes: -DURVALUMAB 500 MG, DURVALUMAB 240 MG in Sodium Chloride 0.9% 100 ML IV SCH
[2018-11-21] MEDS ORDERED: Sodium Chloride 0.9% 20 ML ONE (11:50)
[2018-11-21 11:52] VITALS: BP 118/79; TEMP 98.1
[2018-11-21] MEDS ORDERED: DURVALUMAB IV SCH (12:15)
[2018-11-21] MEDS ORDERED: SODIUM CHLORIDE 0.9% IV SCH (12:15)
== END 2018-11-21 15:32 | disposition home or self-care (01) ==
LOC: ONC/OP 11:35
PROVIDERS: ATTEND Internal Medicine Hematology & Oncology
DX: Z51.12 Encounter for antineoplastic immunotherapy (principal); C34.01 Malignant neoplasm of right main bronchus
CPT/HCPCS: 96413

== ENCOUNTER 2018-12-06 08:35 | Day surgery (SDC) | payer OTHER ==
[2018-12-06 09:08] VITALS: BP 127/87; TEMP 98.4
== END 2018-12-06 11:00 | disposition home or self-care (01) ==
LOC: ONC/OP 08:35
PROVIDERS: ATTEND Internal Medicine Hematology & Oncology
DX: Z51.12 Encounter for antineoplastic immunotherapy (principal); C34.01 Malignant neoplasm of right main bronchus
CPT/HCPCS: 96413

== ENCOUNTER → 2019-01-04 | Day surgery (SDC) | payer OTHER ==
[~2019-01-04] MED LIST changes: +DURVALUMAB 500 MG, DURVALUMAB 240 MG in Sodium Chloride 0.9% 100 ML IV SCH
[2019-01-04 13:05] VITALS: BP 128/74; TEMP 97.7
== END ==
LOC: ONC/OP 11:55
PROVIDERS: ATTEND Internal Medicine Hematology & Oncology
DX: Z51.12 Encounter for antineoplastic immunotherapy (principal); C34.01 Malignant neoplasm of right main bronchus
CPT/HCPCS: 96413

== ENCOUNTER 2019-01-17 11:59 | Day surgery (SDC) | payer OTHER ==
[~2019-01-17 11:59] MED LIST changes: -DURVALUMAB 500 MG, DURVALUMAB 240 MG in Sodium Chloride 0.9% 100 ML IV SCH
[2019-01-17] MEDS ORDERED: Sodium Chloride 0.9% 20 ML ONE (12:03)
[2019-01-17 12:19] VITALS: BP 138/85; TEMP 98.5
== END 2019-01-17 13:40 | disposition home or self-care (01) ==
LOC: ONC/OP 11:59
PROVIDERS: ATTEND Internal Medicine Hematology & Oncology
DX: Z51.12 Encounter for antineoplastic immunotherapy (principal); C34.01 Malignant neoplasm of right main bronchus
CPT/HCPCS: 96413

== ENCOUNTER 2019-01-31 11:15 | Day surgery (SDC) | payer OTHER ==
[2019-01-31] MEDS ORDERED: Sodium Chloride 0.9% 20 ML ONE (12:00)
[2019-01-31 12:47] VITALS: BP 120/76; TEMP 98.5
== END 2019-01-31 13:26 | disposition home or self-care (01) ==
LOC: ONC/OP 11:15
PROVIDERS: ATTEND Internal Medicine Hematology & Oncology
DX: Z51.12 Encounter for antineoplastic immunotherapy (principal); C34.01 Malignant neoplasm of right main bronchus
CPT/HCPCS: 96413

== ENCOUNTER 2019-02-11 10:59 | Outpatient (CLI) | payer OTHER ==
[~2019-02-11 10:59] MED LIST changes: -DURVALUMAB IV SCH; +Iopamidol-370 76% 500 ML 1 ML ONE; -SODIUM CHLORIDE 0.9% IV SCH
--- NOTE | 2019-02-11 11:43 | CT ---
CHEST CT WITH CONTRAST: HISTORY: Lung cancer. Status post chemotherapy and radiation therapy. Patient is currently on immunotherapy. COMPARISON: 11/06/2018, 08/02/2018 and 05/25/2018. FINDINGS: Right lung: Findings compatible with partial resection of the right lung. Upper lobe has been resecte d. There is near complete consolidation of the residual right lung parenchyma. Heterogeneous enhancement attenuation with areas of patchy air density are noted and likely represent posttreatment change with parenchymal necrosis. There is resultant rightward deviation the cardiomediastinal silhouette. Left lung: Compensatory hyperinflation with emphysematous changes. No suspicious masses or consolida tion. No significant pleural fluid. Mediastinum: No mass, lymphadenopathy or hematoma. Heart: Normal heart size. No significant pericardial fluid. Central pulmonary arteries are grossly patent. Visualized aorta has a normal caliber. Upper abdomen: Grossly no abnormality. Stable hypodensity in the liver measuring 1 cm. IMPRESSION: Findings compatible with posttreatment changes in the right hemithorax. There is increased mixed atte nuation of the residual right lung with overall decrease in the right lung volume. There is a scar fibrosis and possible parenchymal necrosis should be considered. Transcribed Date/Time: 02/11/2019 11:53 AM
== END 2019-02-11 11:00 | disposition home or self-care (01) ==
LOC: BICCT 10:59
PROVIDERS: ATTEND Internal Medicine Hematology & Oncology
DX: C34.90 Malignant neoplasm of unspecified part of unspecified bronchus or lung (principal); J84.10 Pulmonary fibrosis, unspecified; J98.4 Other disorders of lung; Z92.3 Personal history of irradiation; Z92.21 Personal history of antineoplastic chemotherapy
CPT/HCPCS: 71260; Q9967

== ENCOUNTER 2019-02-14 09:26 | Day surgery (SDC) | payer OTHER ==
[2019-02-14] MEDS ORDERED: SODIUM CHLORIDE 0.9% IV SCH (09:45)
[2019-02-14] MEDS ORDERED: DURVALUMAB IV SCH (09:45)
[2019-02-14 09:52] VITALS: BP 124/77
== END 2019-02-14 11:27 | disposition home or self-care (01) ==
LOC: ONC/OP 09:26
PROVIDERS: ATTEND Internal Medicine Hematology & Oncology
DX: Z51.12 Encounter for antineoplastic immunotherapy (principal); C34.01 Malignant neoplasm of right main bronchus
CPT/HCPCS: 96413

== ENCOUNTER 2019-05-06 11:35 | Outpatient (CLI) | payer OTHER ==
--- NOTE | 2019-05-06 13:24 | CT ---
CT neck soft tissues with contrast: DATE: 05/06/2019 HISTORY: 58-year-old male with right lung cancer with new large left neck mass. FINDINGS: In the left supraclavicular region, there is a large multi lobulated heterogeneously enhancing interm ediate and low attenuation solid mass measuring approximately 4 x 6 x 7 cm. It could be 1 very large malignant supraclavicular lymph node or a conglomeration of multiple. It severely compresses th e inferior portion of the left internal jugular vein, effacing it, severely narrowing it, and displacing it anteriorly. The lower portion of the left sternocleidomastoid muscle is also significan tly displaced anteriorly by this mass. There is no osseous invasion. Superior to this, there are nonspecific mildly enlarged shotty left level 3 lymph nodes. There is mucosal thickening mildly throughout the larynx, including vallecula, epiglottis, and aryepi glottic folds, perhaps representing inflammation. There is partial effacement of the right piriform sinus. No major pathology identified involving submandibular, parotid, manufacturing process technician, retropharyngeal, or poste rior cervical, spaces, there is severe right lung chronic volume loss with multiple cavitations and air-fluid levels and opacification. Chronic severe cardiomediastinal shift to the right. See separate report of the chest CT today. IMPRESSION: Single large mass versus conglomeration of multiple masses in the left supraclavicular region, 7 cm i n greatest dimension, evidence for malignancy left supraclavicular metastatic lymphadenopathy. It severely narrows and compresses the left internal jugular vein.
--- NOTE | 2019-05-06 14:21 | CT ---
CT OF THE THORAX WITH IV CONTRAST: INDICATION: History of lung cancer with a new palpable abnormality in the left aspect of the neck. COMPARISON: Prior CT of the thorax dated 02/11/2019. FINDINGS: The partial pneumonectomy changes and radiation fibrotic change involving the right lung with near co llapse of the right hemithorax and associated bronchiectasis is stable-appearing. Emphysematous barger ge of the left lung is stable. No suspicious pulmonary nodule is seen within the aerated left lung. Shifting of the mediastinum is similar-appearing. No pathologically enlarged lymph nodes are eviden t within the mediastinum. Within the left supraclavicular region, there is a 6 cm x 3.5 cm hypodense mass suspicious for left supraclavicular malignant lymphadenopathy. No axillary lymphadenopathy is evident. A small 9 mm hypodensity within the caudate lobe is stable. Subcentimeter lesion within th e lateral left hepatic lobe is similar-appearing. Cholelithiasis is stable. Right adrenal gland and left adrenal gland are normal-appearing. Visualized spleen is unremarkable appearing. There is sca ttered degenerative and osteoarthritic change. IMPRESSION: 1. Findings of left supraclavicular malignant lymphadenopathy. 2. The remainder of the examination is unchanged. 3. Post therapy changes of the right hemithorax are similar-appearing. Emphysematous change of the left lung is stable-appearing. No new left-sided pulmonary nodule is evident. 4. Small cysts within the liver are stable-appearing. POS: [facility]
[2019-05-06] MEDS ORDERED: Iopamidol 370 76% 100 ML VIAL ONE (14:37)
== END 2019-05-06 11:36 | disposition home or self-care (01) ==
LOC: CT 11:35
PROVIDERS: ATTEND Internal Medicine Hematology & Oncology
DX: C34.01 Malignant neoplasm of right main bronchus (principal); R59.0 Localized enlarged lymph nodes; K76.89 Other specified diseases of liver; I87.1 Compression of vein; I87.8 Other specified disorders of veins
CPT/HCPCS: 70491; 71260; 82565; Q9967

== ENCOUNTER 2019-05-16 11:49 | Outpatient (CLI) | payer OTHER ==
--- NOTE | 2019-05-16 15:12 | PET ---
Nuclear medicine FDG PET/CT: (Positron emission tomography and computed tomography) DATE: 05/16/2019 HISTORY: 58-year-old male with malignant neoplasm of right mainstem bronchus with new metastatic left neck mas s. COMPARISON: 05/06/[address]. 06/07/2018 PET TECHNIQUE: IV injection of F-18 fluorodeoxyglucose (FDG) dose: 16.5 mCi. PET scan and attenuation correction CT performed from skull base to proximal thighs. PET scan and attenuation correction CT thinner slices performed through head and neck. FINDINGS: SUV (standard uptake values) numbers given are maximum SUVs. QCLR used. Large left supraclavicular mass measuring 4 x 6 x 7 cm has SUV 18.0. This is new since 06/07/2018, and stable since 05/06/2019. No other FDG avid suspicious lesions in the rest of the neck, including larynx, nasopharynx, orophary nx, parotid, and submandibular spaces.. Severe chronic right lung volume loss with total opacification of right hemithoracic cavity, severe r ight bronchiectasis, and ex vacuo cardiomediastinal shift to the right, are stable. There is an approximately 1 x 0.4 cm new anterior mediastinal lymph node to the left of the aortic ar ch and just posterior to the head of the right clavicle, SUV 3.9. Slightly inferior to that, is another approximately 1 x 0.7 cm new anterior mediastinal lymph node to the left of the aortic arch and just posterior to the right sternoclavicular junction, also with SUV 3.9. Inferior and posterior to that, at aortopulmonic window, new 1 x 0.7 cm lymph node with SUV 5.0. Previous very small right anterolateral paratracheal lymph node with prior SUV 3.7 has current SUV 3. 9, and no interval change in size, approximately 0.8 x 0.8 cm. At right anterolateral upper pleural or subpleural location, there is a new hypermetabolic focus SUV 9.4. Difficult to measure because it is inseparable from the chronically opacified intrathoracic adjacent contents, but very crude measurement is approximately 1 x 1.5 cm. New 0.9 x 0.4 cm tiny focal lymph node left mediastinum slightly lateral to the pulmonic trunk and sl ightly superior to the heart with SUV 4.1. New ill-defined, patchy region of uptake SUV 5.7 abutting the right lower trachea and superior surfac e of origin of right mainstem bronchus. This is very difficult to measure because this area is indistinguishable from the adjacent unopacified contents of the right hemithoracic cavity on CT. Very crude dimension of approximately 2 cm. No suspicious foci of FDG avid lesions in the pelvic cavity or abdominal cavity. Large hydrocele in t he left scrotum. IMPRESSION: 1) large hypermetabolic malignant left supraclavicular mass: Malignant metastatic lymphadenopathy. 2) no other abnormal activity in the neck. 3) multiple new small intrathoracic metastatic foci.
== END 2019-05-16 11:50 | disposition home or self-care (01) ==
LOC: PET 11:49
PROVIDERS: ATTEND Internal Medicine Hematology & Oncology
DX: C34.01 Malignant neoplasm of right main bronchus (principal); C79.89 Secondary malignant neoplasm of other specified sites; R59.0 Localized enlarged lymph nodes
CPT/HCPCS: 78815; A9552

== ENCOUNTER → 2019-06-26 | Day surgery (SDC) | payer OTHER ==
[~2019-06-26] MED LIST changes: +CARBOPLATIN IVPB SCH; +Dexamethasone Sod Phosphate 10 MG, Ondansetron 2MG/ML MDV 10 MG in Sodium Chloride 0.9%... IVPB SCH; -Iopamidol-370 76% 500 ML 1 ML ONE; +PACLitaxel Protein-Bound 200 MG in IV Admixture Fee-Chemo 1 UNITS IVPB SCH; +Pembrolizumab 200 MG in Sodium Chloride 0.9% 250 ML 250 ML IV SCH; +SODIUM CHLORIDE 0.9% IVPB SCH; +Sodium Chloride 0.9% 20 ML ONE
[2019-06-26 10:16] VITALS: BP 126/77; TEMP 98.5
== END ==
LOC: ONC/OP 09:57
PROVIDERS: ATTEND Internal Medicine Hematology & Oncology
DX: Z51.11 Encounter for antineoplastic chemotherapy (principal); C34.01 Malignant neoplasm of right main bronchus
CPT/HCPCS: 96375; 96413; 96417; J1100; J2405; J7050; J9045

== ENCOUNTER 2019-07-03 08:56 | Day surgery (SDC) | payer OTHER, SELFPAY ==
[~2019-07-03 08:56] MED LIST changes: -CARBOPLATIN IVPB SCH; -Dexamethasone Sod Phosphate 10 MG, Ondansetron 2MG/ML MDV 10 MG in Sodium Chloride 0.9%... IVPB SCH; -Pembrolizumab 200 MG in Sodium Chloride 0.9% 250 ML 250 ML IV SCH; -SODIUM CHLORIDE 0.9% IVPB SCH; -Sodium Chloride 0.9% 20 ML ONE
[2019-07-03] MEDS ORDERED: Sodium Chloride 0.9% 20 ML ONE (08:58)
[2019-07-03] MEDS ORDERED: Ondansetron PF 4 MG/2 ML Vial IVP SCH (09:30)
[2019-07-03 11:12] VITALS: BP 102/67; TEMP 98.6
== END 2019-07-03 13:03 | disposition home or self-care (01) ==
LOC: ONC/OP 08:56
PROVIDERS: ATTEND Internal Medicine Hematology & Oncology
DX: Z51.11 Encounter for antineoplastic chemotherapy (principal); C34.01 Malignant neoplasm of right main bronchus
CPT/HCPCS: 96375; 96413; J2405

== ENCOUNTER 2019-08-30 15:03 | Emergency (ER) | payer MEDICARE, SELFPAY ==
[2019-08-30] MEDS ORDERED: Lorazepam 1 MG TAB ONE (15:08)
[2019-08-30 15:30] LABS: #Lymphocytes 0.7 thou/uL (1.20-3.40); #Monocytes 0.2 thou/uL (0.11-0.59); #Neutrophils 2.7 thou/uL (1.40-6.50); %Eosinophils 0.2 % (0.0-10.0); %Lymphocytes 19.9 % (21.0-51.0); %Monocytes 5.4 % (0.0-10.0); %Neutrophils 73.4 % (42.0-75.0); Hemoglobin 12.8 g/dL (14.0-18.0); Mean Corpuscular HGB CONC 31.9 g/dL (32.0-36.0); Mean Corpuscular Hemoglobin 28.9 pg (27.0-31.0); Mean Corpuscular Volume 90.5 fL (78.0-98.0); Mean Platelet Volume 6.5 fL (7.4-10.4); Platelet Count 463 thou/uL (130-400); RBC Distribution Width 13.6 % (11.5-14.5); Red Blood Cell (RBC) Count 4.43 mill/uL (4.70-6.10); White Blood Cell (WBC) Count 3.7 thou/uL (4.8-10.8)
[2019-08-30 15:53] LABS: ALT (SGPT) 36 U/L (8-55); AST (SGOT) 22 U/L (5-34); Albumin 4.3 g/dL (3.5-5.0); Alkaline Phosphatase 125 U/L (40-110); Anion Gap 18 mmol/L (10-20); BUN (Urea Nitrogen) 13 mg/dL (8.4-25.7); Bilirubin, Total 0.6 mg/dL (0.2-1.2); Calc. Creatinine Clearance 0 mL/min (70-130); Calcium 9.8 mg/dL (7.8-10.44); Carbon Dioxide 20 mmol/L (22-29); Chloride 99 mmol/L (98-107); Estimated GFR-MDRD 64; Globulin 3.9 g/dL (2.4-3.5); Glucose 111 mg/dL (70-105); Lipase 7 U/L (8-78); Potassium 4.2 mmol/L (3.5-5.1); Protein, Total 8.2 g/dL (6.0-8.3); Sodium 133 mmol/L (136-145)
[2019-08-30] MEDS ORDERED: Ondansetron PF 4 MG/2 ML Vial ONE (15:58)
[2019-08-30] MEDS ORDERED: Morphine 4 MG/ML VIAL ONE (15:58)
--- NOTE | 2019-08-30 16:00 | RAD ---
EXAM: CHEST ONE VIEW HISTORY: Syncope and collapse x2. COMPARISON: CT thorax on 05/06/2019 FINDINGS: Complete opacification the right hemithorax is present with shift of the mediastinal structures to th e right. These findings were noted on prior CT examination. Left lung is clear. Due to shift of the mediastinal structures to the right, the cardiac silhouette is not visualized. Calcifications are see n adjacent to the left humeral head likely attributable to calcific peritendinitis. No other interval change. IMPRESSION: Complete opacification right hemithorax with volume loss and shift of mediastinal structures to the r ight. Findings are again likely related to posttreatment changes. Left lung remains clear.
--- NOTE | 2019-08-30 18:35 | RAD ---
THORACIC SPINE THREE VIEWS: 08/30/19 HISTORY: Syncope and collapse, back pain. FINDINGS/IMPRESSION: No acute fracture or subluxation is seen. There is opacification of the right hemithorax with mediastinal shift to the right. This is consisten t with right laminectomy changes. POS: [facility]
== END 2019-08-30 19:05 | disposition home or self-care (01) ==
LOC: ERS 15:03
DX: R55 Syncope and collapse (principal); Z87.891 Personal history of nicotine dependence
CPT/HCPCS: 36415; 71045; 72072; 80053; 83690; 83735; 84484; 85025; 93005; 94760; 96361; 96374; 96375; J2270; J2405

== ENCOUNTER 2019-09-11 15:12 | Inpatient (IN) | payer MEDICARE ==
[2019-09-11 15:41] LABS: #Basophils 0.1 thou/uL (0.0-0.2); #Lymphocytes 0.5 thou/uL (1.20-3.40); #Monocytes 0.5 thou/uL (0.11-0.59); #Neutrophils 4.9 thou/uL (1.40-6.50); %Basophils 1.3 % (0.0-1.0); %Eosinophils 0.3 % (0.0-10.0); %Lymphocytes 8.9 % (21.0-51.0); %Monocytes 8.3 % (0.0-10.0); %Neutrophils 81.2 % (42.0-75.0); Hemoglobin 12.4 g/dL (14.0-18.0); Mean Corpuscular HGB CONC 32.7 g/dL (32.0-36.0); Mean Corpuscular Hemoglobin 28.9 pg (27.0-31.0); Mean Corpuscular Volume 88.3 fL (78.0-98.0); Mean Platelet Volume 6.1 fL (7.4-10.4); Platelet Count 477 thou/uL (130-400); RBC Distribution Width 13.8 % (11.5-14.5)
[2019-09-11 15:56] LABS: Lactic Acid 2.5 mmol/L (0.5-2.2)
[2019-09-11 16:00] LABS: ALT (SGPT) 77 U/L (8-55); AST (SGOT) 54 U/L (5-34); Albumin 4.2 g/dL (3.5-5.0); Alkaline Phosphatase 251 U/L (40-110); Anion Gap 17 mmol/L (10-20); BUN (Urea Nitrogen) 16 mg/dL (8.4-25.7); Bilirubin, Total 0.4 mg/dL (0.2-1.2); Calc. Creatinine Clearance 0 mL/min (70-130); Calcium 9.5 mg/dL (7.8-10.44); Carbon Dioxide 24 mmol/L (22-29); Chloride 98 mmol/L (98-107); Estimated GFR-MDRD 62; Glucose 87 mg/dL (70-105); Protein, Total 8.2 g/dL (6.0-8.3); Sodium 135 mmol/L (136-145)
[2019-09-11] MEDS ORDERED: Cefepime 2 GM VIAL ONE (16:02)
[2019-09-11] MEDS ORDERED: Vancomycin 1.5 GRAM/300 ML BAG 1.5 GM in Premix Bag 1 BAG IVPB SCH (16:15)
[2019-09-11] MEDS ORDERED: Acetaminophen 500 MG TAB ONE (16:22)
[2019-09-11 16:55] LABS: Bilirubin Negative (Negative); Blood, Urine Negative (Negative); Clarity Clear (Clear); Glucose, Urine (Dipstick) Normal (Negative); Leukocyte Negative Leu/uL (Negative); Nitrite Negative (Negative); Protein, Urine (Dipstick) 20 mg/dL (Neg-Trace); Urobilinogen Normal mg/dL (Less than 2)
[2019-09-11] MEDS ORDERED: HYDROcodone/Acetaminophen 5/325 mg Tablet PO PRN (17:31)
[2019-09-11] MEDS ORDERED: Senokot S 8.6-50 MG TAB PO PRN (17:31)
[2019-09-11] MEDS ORDERED: Bisacodyl 10 MG SUPP PR PRN (17:31)
[2019-09-11] MEDS ORDERED: Guaifenesin DM 100-10/5 ML UDCUP PO PRN (17:31)
[2019-09-11] MEDS ORDERED: Ondansetron PF 4 MG/2 ML Vial IVP PRN (17:31)
[2019-09-11] MEDS: Sodium Chloride 0.9% 1,000 ML IV SCH (19:36)
[2019-09-11] MEDS: Famotidine 20 MG TAB PO SCH (19:37)
[2019-09-11 20:11] VITALS: BMI 23.1
[2019-09-12] MEDS: Cefepime 1 GM in Sodium Chloride 0.9% 100 ML IVPB SCH ×2 (03:00→16:36)
[2019-09-12] MEDS: Sodium Chloride 0.9% 1,000 ML IV SCH ×3 (03:03→23:56)
[2019-09-12] MEDS: Acetaminophen 325 MG TAB PO PRN ×2 (04:31→16:42)
[2019-09-12] MEDS: Vancomycin HCl 1.25 GM in Sodium Chloride 0.9% 250 ML 250 ML IVPB SCH ×2 (04:39→18:07)
[2019-09-12 06:15] LABS: #Lymphocytes 0.6 thou/uL (1.20-3.40); #Monocytes 0.5 thou/uL (0.11-0.59); #Neutrophils 3.2 thou/uL (1.40-6.50); %Basophils 0.5 % (0.0-1.0); %Eosinophils 0.2 % (0.0-10.0); %Lymphocytes 12.8 % (21.0-51.0); %Monocytes 11.5 % (0.0-10.0); Hemoglobin 9.8 g/dL (14.0-18.0); Mean Corpuscular HGB CONC 31.9 g/dL (32.0-36.0); Mean Corpuscular Hemoglobin 27.8 pg (27.0-31.0); Mean Platelet Volume 5.9 fL (7.4-10.4); Platelet Count 426 thou/uL (130-400); RBC Distribution Width 13.8 % (11.5-14.5); Red Blood Cell (RBC) Count 3.52 mill/uL (4.70-6.10); White Blood Cell (WBC) Count 4.3 thou/uL (4.8-10.8)
--- NOTE | 2019-09-12 06:21 | HP ---
REASON FOR ADMISSION: Possible sepsis. The patient is immunocompromised, being on chemotherapy and immunotherapy. HISTORY OF PRESENTING ILLNESS: The patient gives history of going for his regular chemotherapy session to cancer clinic. The patient went ahead to start getting chemo, but then they measured his temperature again, it was 102 degrees. Chemo was held and he was transferred to ER. The patient states that he has been having less energy for the last 3 weeks and not eating well. No complaints of urinary frequency or urgency. No skin breaks anywhere. No diarrhea, abdominal pain, chest pain or vomiting. The patient has been trying to drink lot of fluids. His blood pressure was low two weeks back and was asked to drink a lot of fluid and eat more, which he has been trying. PAST MEDICAL AND SURGICAL HISTORY: h/o squamous cell right lung cancer, had 39 cycles of radiation therapy for it. From last year, he has been on immunotherapy and chemotherapy two times a month. Currently, he is on Abraxane, Keytruda, and another chemo agent which he cannot recall. He has had a surgery on his testis. Ear tubes placed. The patient has had recurrence of his cancer in his left supraclavicular lymph node. The patient says the size of it is almost three times less with initiation of chemotherapy which has really helped him. CURRENT MEDICATIONS: The patient is on; 1. Abraxane. 2. Keytruda. 3. Another chemotherapy. 4. Zofran p.r.n. ALLERGIES: NO KNOWN DRUG ALLERGIES. PERSONAL HISTORY: Does not abuse alcohol or drugs. Quit smoking more than 10 years ago. Lives with his mom and stepdad. He ambulates by himself. FAMILY HISTORY: Mother is living and healthy. Father of melanoma and its complications at the age of 47. The patient has a son and a daughter and three grandkids. CODE STATUS: Full. REVIEW OF SYSTEMS: CONSTITUTIONAL: Negative for weight loss or gain, ability to conduct usual activities. SKIN: Negative for rash, itching. EYES: Negative for double vision, pain. ENT/MOUTH: Negative for nose bleeding, neck stiffness, pain, tenderness. CARDIOVASCULAR: Negative for palpitations, dyspnea on exertion, orthopnea. RESPIRATORY: Negative for shortness of breath, wheezing, cough, hemoptysis, fever or night sweats. GASTROINTESTINAL: Negative for poor appetite, abdominal pain, heartburn, nausea , vomiting, constipation, or diarrhea. GENITOURINARY: Negative for urgency, frequency, dysuria, nocturia. MUSCULOSKELETAL: Negative for pain, swelling. NEUROLOGIC/PSYCHIATRIC: Negative for anxiety, depression. ALLERGY/IMMUNOLOGIC: Negative for skin rash, bleeding tendency. PHYSICAL EXAMINATION: GENERAL: The patient is a 59-year-old male, who is currently not in any acute distress. VITAL SIGNS: Blood pressure 134/86, pulse 130 per minute, respiratory rate 20 per minute, temperature 101.4 degrees Fahrenheit, saturating 99% on room air. NECK: Supple. There are supraclavicular lymph nodes palpable. There is no JVD. CARDIOVASCULAR SYSTEM: S1 and S2 heard. Regular rhythm. RESPIRATORY: Air entry decreased right lung. Scattered rhonchi plus no rales or wheezes. ABDOMEN: Soft. Bowel sounds heard. No tenderness, rigidity, or guarding. EXTREMITIES: No peripheral edema or calf tenderness. VASCULAR SYSTEM: Peripheral pulses 1+ bilateral. No ischemic ulcerations or gangrene. CENTRAL NERVOUS SYSTEM: No gross focal motor deficits noted. The patient is alert, awake, oriented well. PSYCHIATRIC SYSTEM: The patient's mood is euthymic. No hallucinations or delusions. LABORATORY DATA: White count of 6, H and H of 12 and 38, platelet count 477 with 81% neutrophils, MCV is 88. Electrolytes are stable. BUN 16, creatinine 1.1. Lactic acid 2.5. AST 54, ALT 77, alkaline phosphatase 251. UA is negative for any infection. CLINICAL IMPRESSION AND PLAN: The patient will be admitted to Oncology floor for sepsis with him being immunocompromised and on chemotherapy and immunotherapy for squamous cell lung cancer with metastasis. Baugh-cultures have been obtained in the ER. He will be on cefepime, Levaquin, and vancomycin for now. These will be rapidly deescalated once the cultures are back. He will be gently hydrated with normal saline at 100 mL per hour and will continue multivitamin as before. We will obtain consultation with Dr. Francis Bowles, his oncologist as well during his stay here. We will continue to closely monitor in Oncology floor. The patient also needs help with completing his advanced directives and will consult Palliative Care to help him with the same. Job ID: [id number] [facility]
[2019-09-12 06:34] LABS: ALT (SGPT) 58 U/L (8-55); AST (SGOT) 29 U/L (5-34); Albumin 3.3 g/dL (3.5-5.0); Alkaline Phosphatase 191 U/L (40-110); Anion Gap 14 mmol/L (10-20); BUN (Urea Nitrogen) 10 mg/dL (8.4-25.7); Bilirubin, Total 0.6 mg/dL (0.2-1.2); Calc. Creatinine Clearance 97 mL/min (70-130); Calcium 8.7 mg/dL (7.8-10.44); Carbon Dioxide 21 mmol/L (22-29); Chloride 103 mmol/L (98-107); Estimated GFR-MDRD 88; Globulin 3.1 g/dL (2.4-3.5); Glucose 105 mg/dL (70-105); Potassium 4.2 mmol/L (3.5-5.1); Protein, Total 6.4 g/dL (6.0-8.3); Sodium 134 mmol/L (136-145)
[2019-09-12] MEDS ORDERED: Mag-Al Plus 1200 MG/1200 MG/120 MG/30 ML UDCUP PO PRN (08:59)
[2019-09-12] MEDS: Famotidine 20 MG TAB PO SCH ×2 (09:12→20:46)
[2019-09-12] MEDS: Multivit, Therapeutic 1 TAB PO SCH (09:14)
[2019-09-12] MEDS: Enoxaparin Sodium 40 MG/0.4 ML SYRINGE SC SCH (09:14)
--- NOTE | 2019-09-12 09:46 | RAD ---
EXAM: Chest PA and lateral: HISTORY: Fever. Sepsis. Lung cancer. COMPARISON: 08/30/2019 FINDINGS: Heart: Stable rightward deviation of the cardiac mediastinal silhouette Aorta: Unremarkable Pulmonary vessels: Normal Costophrenic angles: No evidence of a left-sided effusion Lungs: Findings compatible with right pneumonectomy. Compensatory hyperinflation of the left lung. Pneumothorax: No pneumothorax Osseous structures: No osseous abnormalities IMPRESSION: No significant interval change. Findings compatible with right pneumonectomy.
--- NOTE | 2019-09-12 12:26 | CON ---
DATE OF CONSULTATION: REASON FOR CONSULTATION: Lung cancer. HISTORY OF PRESENT ILLNESS: A 59-year-old male with metastatic squamous cell carcinoma of the right lung, status post chemotherapy and radiation followed by maintenance immunotherapy with recurrence of disease, currently on carboplatin, Abraxane, and Keytruda. He last received chemotherapy on September 03, who presented to the clinic yesterday for chemotherapy and was found to have a temperature of 102.1 and a pulse of 131. He was not hypotensive at that time and was saturating 99% on room air. He was referred over to the ER for evaluation. The patient states that he has been weak, not eating a lot, but has been staying well hydrated as per him. He has been having some dizziness upon standing in the night prior to admission, he felt cold, but denies any shaking chills or fevers at home. When he came over to the ER, his temperature was 102.6. He was given IV fluids in Cancer Clinic and again in the ER and started on broad-spectrum antibiotics. His urine is negative and blood cultures are currently pending. This morning, the patient is feeling a lot better since starting his fluids and antibiotics. His shortness of breath is slightly worse than baseline and cough is stable. He denies any nausea or vomiting, but does have indigestion, improved with Mylanta. REVIEW OF SYSTEMS: Ten-point review of systems negative except as per HPI. PAST MEDICAL HISTORY: Lung cancer, tobacco abuse. SURGICAL HISTORY: MediPort, testis, ear tubes. SOCIAL HISTORY: Former smoker. FAMILY HISTORY: Melanoma in his father. CURRENT MEDICATIONS: Reviewed. ALLERGIES: NO KNOWN DRUG ALLERGIES. PHYSICAL EXAMINATION: VITAL SIGNS: T-max 102.6, currently 98.4. Pulse 101, respirations 18, saturating 96% to 100% on room air, blood pressure 113/76. GENERAL APPEARANCE: The patient is lying in bed, in no acute distress. HEENT: Normocephalic and atraumatic. LYMPHATICS: No palpable lymphadenopathy, though he does have a supraclavicular mass, which is smaller since initiating chemotherapy. RESPIRATIONS: Scattered rhonchi, right worse than left. ABDOMEN: Soft, nondistended, and nontender. Bowel sounds are present. NEUROLOGIC: Cranial nerves 2 through 12 are grossly intact. PSYCHIATRIC: Awake, alert, and oriented x3. LABORATORY DATA: White blood cells 4.3; hemoglobin 12.4, down to 9.8 after fluids; platelets 426. Neutrophils 75%. Sodium 135, potassium 4.2, BUN 10, creatinine 0.88. AST 29, ALT 58, ALP 191. Urinalysis is negative. Blood cultures are pending. 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 The patient has shown dramatic improvement with fluids and antibiotics. His heart rate has almost returned to normal and he is currently afebrile. The patient is not neutropenic. We will recommend chest x-ray. If no signs of pneumonia, can likely deescalate antibiotics and discontinue vancomycin at that time. We will await blood culture results. Thank you for this consult. Job ID: [id number]
--- NOTE | 2019-09-12 12:45 | PDOC.HOSPP ---
- Subjective Encounter Date: 09/12/19 Encounter Time: 09:00 Subjective: no sob, feels better this morning no fever or nausea mother and sister at bedside - Objective Vital Signs & Weight: Vital Signs (12 hours) Temp Pulse Resp BP Pulse Ox 09/12/19 11:58 98.2 F 99 18 117/77 99 09/12/19 07:24 98.4 F 101 H 18 113/76 101 H 09/12/19 04:45 99.1 F 09/12/19 04:05 100.5 F H 117 H 18 109/63 96 Weight Weight 170 lb 1 oz I&O: 09/11/19 09/12/19 09/13/19 06:59 06:59 06:59 Intake Total 1400 Output Total 300 Balance 1100 Result Diagrams: 09/12/19 06:00 09/12/19 06:00 Hospitalist ROS - Medication Medications: Active Medications Generic Name Dose Route Start Last Admin Trade Name Freq PRN Reason Stop Dose Admin Acetaminophen 650 mg 09/11/19 17:31 09/12/19 04:31 Tylenol PO 650 mg Q4H PRN Administration Headache/Fever/Mild Pain (1-3) Enoxaparin Sodium 40 mg 09/12/19 09:00 09/12/19 09:14 Lovenox SC Not Given 0900 RYANNE Famotidine 20 mg 09/11/19 21:00 09/12/19 09:12 Pepcid PO Not Given BID RYANNE Cefepime HCl 1 gm/ Sodium 100 mls @ 200 mls/hr 09/12/19 04:00 09/12/19 03:00 Chloride IVPB 100 mls 0400,1600 RYANNE Administration Levofloxacin 500 mg/ Device 100 mls @ 100 mls/hr 09/11/19 18:00 09/11/19 19: 36 IVPB 100 mls 1800 RYANNE Administration Sodium Chloride 1,000 mls @ 100 mls/hr 09/11/19 17:31 09/12/19 03:03 Normal Saline 0.9% IV 1,000 mls .Q10H RYANNE Administration Vancomycin HCl 1.25 gm/ Sodium 250 mls @ 166.667 mls/hr 09/12/19 05:00 04:39 Chloride IVPB 250 mls 0500,1700 RYANNE Administration Multivitamins 1 tab 09/12/19 09:00 09/12/19 09:14 Theragran PO 1 tab DAILY RYANNE Administration - Exam General Appearance: awake alert Eye: PERRL, anicteric sclera ENT: no oropharyngeal lesions, moist mucosa Neck: no JVD Neck - other findings: left cervical lymph nodes++ Heart: RRR, no murmur Respiratory: rhonchi Respiratory - other findings: decreased air entry right hemithorax Gastrointestinal: soft, non-tender, non-distended, normal bowel sounds Extremities: no cyanosis, no edema Neurological: cranial nerve grossly intact, no focal deficits Psychiatric: normal affect, A&O x 3 Hosp A/P (1) Sepsis Code(s): A41.9 - SEPSIS, UNSPECIFIED ORGANISM Status: Acute Qualifiers: Sepsis type: sepsis due to unspecified organism Severe sepsis shock status : without septic shock (2) Squamous cell carcinoma of lung, stage IV Code(s): C34.90 - MALIGNANT NEOPLASM OF UNSP PART OF UNSP BRONCHUS OR LUNG Status: Chronic Qualifiers: Laterality: right Qualified Code(s): C34.91 - Malignant neoplasm of unspecified part of right bronchus or lung (3) Moderate dehydration Code(s): E86.0 - DEHYDRATION Status: Resolved (4) Immunosuppressed status Code(s): D89.9 - DISORDER INVOLVING THE IMMUNE MECHANISM, UNSPECIFIED Status: Acute - Plan hemostable cxr shows full opacification of right lung, ?had right upper lobectomy prior radiation therapy currently on chemo and keytruda on cefepime, vanc and levaquin prelim blood cs and urine cs are -ve will descalate antibiotics soon.
--- NOTE | 2019-09-12 20:24 | CON ---
DATE OF CONSULTATION: HISTORY OF PRESENT ILLNESS: A 59-year-old gentleman with known history of stage IV squamous cell carcinoma, who was to undergo chemotherapy, but had fever 102, was sent to the ER. His PET scan done not long ago shows a large hypermetabolic left supraclavicular mass, metastatic disease, multiple intrathoracic metastatic foci. He said he is feeling better this morning. He is less short of breath. He is a former smoker. In 2007, he underwent a bronchoscopy by Dr. Hernandez. Reviews squamous cell carcinoma. PAST MEDICAL HISTORY: Squamous cell carcinoma, status post chemotherapy as outlined by Oncology. PREVIOUS SURGERIES: Tubes. HOME MEDICATIONS: Multivitamins. He is now on: 1. Maxipime. 2. Vancomycin. 3. Levaquin. REVIEW OF SYSTEMS: Otherwise, negative. PHYSICAL EXAMINATION: VITAL SIGNS: Temperature 98, pulse 99, saturations 100% on room air, blood pressure 117/73. NECK: Large left supraclavicular mass. LUNGS: Decreased breath sounds in entire right lung. Left lung unremarkable. CARDIAC: Normal S1 and S2. No gallops. ABDOMEN: No masses. LABORATORY DATA: White count 4000, H and H of 9 and 30, platelet count 426. Sodium 135. ASSESSMENT: Metastatic squamous cell carcinoma, fever, left lung atelectasis, endobronchial disease. PLAN: Continue empiric antibiotics. Supportive care. If cultures are negative, would start deescalating. I wonder whether coronavirus study was done on the patient. Consultation note, 70 minutes, 50% direct patient care. Job ID: [id number]
[2019-09-12] MEDS ORDERED: Melatonin 3 MG TAB PO SCH (21:45)
[2019-09-13] MEDS: Cefepime 1 GM in Sodium Chloride 0.9% 100 ML IVPB SCH ×2 (03:30→16:09)
[2019-09-13] MEDS: Vancomycin HCl 1.25 GM in Sodium Chloride 0.9% 250 ML 250 ML IVPB SCH ×2 (05:02→18:34)
[2019-09-13] MEDS: Famotidine 20 MG TAB PO SCH ×2 (09:19→20:20)
[2019-09-13] MEDS: Enoxaparin Sodium 40 MG/0.4 ML SYRINGE SC SCH (09:20)
[2019-09-13] MEDS: Multivit, Therapeutic 1 TAB PO SCH (09:23)
[2019-09-13] MEDS: Sodium Chloride 0.9% 1,000 ML IV SCH ×2 (09:23→22:17)
[2019-09-13] MEDS: Acetaminophen 325 MG TAB PO PRN ×2 (09:23→20:17)
--- NOTE | 2019-09-13 10:15 | PRG ---
DATE OF SERVICE: 09/13/2019 SUBJECTIVE: A 59-year-old gentleman, still short of breath. OBJECTIVE: VITAL SIGNS: Temperature 98, pulse 109, respirations 20, saturations 96% on room air, and blood pressure 170/71. CHEST: Decreased breath sounds, right lung. Left lung unremarkable. CARDIAC: Normal S1, S2. No gallops. ABDOMEN: No masses. ASSESSMENT: Squamous cell carcinoma of right lung, status post chemoradiation, followed by local oncologist since 2018. Persistent atelectatic right lung. Primary care physician looking into his lung again. I am not so sure with the findings on the x-ray. We are going to see that will change the course of his treatment. His Oncology feels it needs to be re-bronchoscoped. We will be happy to do it on an outpatient basis. Otherwise, disposition home any time. Job ID: [id number]
--- NOTE | 2019-09-13 12:00 | PDOC.HOSPP ---
- Subjective Encounter Date: 09/13/19 Encounter Time: 10:00 Subjective: no sob or fever is eating better slept well last night - Objective Vital Signs & Weight: Vital Signs (12 hours) Temp Pulse Resp BP Pulse Ox 09/13/19 11:26 98.5 F 98 20 117/75 92 L 09/13/19 07:42 98.6 F 109 H 20 117/71 97 09/13/19 04:00 99.3 F 107 H 16 110/72 98 09/13/19 00:00 98.8 F 111 H 16 123/77 97 Weight Admit Weight 170 lb Weight 170 lb 1 oz I&O: 09/12/19 09/13/19 09/14/19 06:59 06:59 06:59 Intake Total 1400 1400 Output Total 300 800 Balance 1100 600 Result Diagrams: 09/12/19 06:00 09/12/19 06:00 Hospitalist ROS - Medication Medications: Active Medications Generic Name Dose Route Start Last Admin Trade Name Freq PRN Reason Stop Dose Admin Acetaminophen 650 mg 09/11/19 17:31 09/13/19 09:23 Tylenol PO 650 mg Q4H PRN Administration Headache/Fever/Mild Pain (1-3) Al Hydroxide/Mg Hydroxide 10 ml 09/12/19 08:59 09/12/19 12:57 Maalox Plus PO 10 ml Q6H PRN Administration GI Upset Enoxaparin Sodium 40 mg 09/12/19 09:00 09/13/19 09:20 Lovenox SC Not Given 0900 RYANNE Famotidine 20 mg 09/11/19 21:00 09/13/19 09:19 Pepcid PO Not Given BID RYANNE Cefepime HCl 1 gm/ Sodium 100 mls @ 200 mls/hr 09/12/19 04:00 09/13/19 03:30 Chloride IVPB 100 mls 0400,1600 RYANNE Administration Levofloxacin 500 mg/ Device 100 mls @ 100 mls/hr 09/11/19 18:00 09/12/19 18: 08 IVPB 100 mls 1800 RYANNE Administration Sodium Chloride 1,000 mls @ 100 mls/hr 09/11/19 17:31 09/13/19 09:23 Normal Saline 0.9% IV 1,000 mls .Q10H RYANNE Administration Vancomycin HCl 1.25 gm/ Sodium 250 mls @ 166.667 mls/hr 09/12/19 05:00 05:02 Chloride IVPB 250 mls 0500,1700 RYANNE Administration Multivitamins 1 tab 09/12/19 09:00 09/13/19 09:23 Theragran PO 1 tab DAILY RYANNE Administration Sodium Chloride 10 ml 09/13/19 09:00 09/13/19 09:21 Flush - Normal Saline IVF Not Given Q12HR RYANNE - Exam General Appearance: awake alert Eye: PERRL, anicteric sclera ENT: no oropharyngeal lesions, moist mucosa Neck: supple, no JVD Heart: RRR, no murmur Respiratory - other findings: no breath sounds right hemithorax Gastrointestinal: soft, non-tender, normal bowel sounds Extremities: no cyanosis, no edema Neurological: cranial nerve grossly intact, no focal deficits Psychiatric: normal affect, A&O x 3 Hosp A/P (1) Sepsis Code(s): A41.9 - SEPSIS, UNSPECIFIED ORGANISM Status: Acute Qualifiers: Sepsis type: sepsis due to unspecified organism Severe sepsis shock status : without septic shock (2) Squamous cell carcinoma of lung, stage IV Code(s): C34.90 - MALIGNANT NEOPLASM OF UNSP PART OF UNSP BRONCHUS OR LUNG Status: Chronic Qualifiers: Laterality: right Qualified Code(s): C34.91 - Malignant neoplasm of unspecified part of right bronchus or lung (3) Moderate dehydration Code(s): E86.0 - DEHYDRATION Status: Resolved (4) Immunosuppressed status Code(s): D89.9 - DISORDER INVOLVING THE IMMUNE MECHANISM, UNSPECIFIED Status: Acute - Plan hemostable cxr shows full opacification of right lung, prior radiation therapy, no prior lung surgeries done. currently on chemo and keytruda on cefepime, vanc and levaquin, may switch to oral antibiotics per Onc adv prelim blood cs and urine cs are -ve Will likely need bronch per pulm advice
--- NOTE | 2019-09-13 15:29 | PDOC.MOPN ---
Interval History: afebrile, ambulatory in hallway without issues - Vital Signs Vital Signs: Vital Signs (12 hours) Temp Pulse Resp BP Pulse Ox 09/13/19 11:26 98.5 F 98 20 117/75 92 L 09/13/19 07:42 98.6 F 109 H 20 117/71 97 09/13/19 04:00 99.3 F 107 H 16 110/72 98 Weight Admit Weight 170 lb Weight 170 lb 1 oz - Physical Exam General: Alert, Oriented x3, No acute distress HEENT: Atraumatic Lungs: Clear to auscultation Cardiovascular: Regular rate Abdomen: Normal bowel sounds Neurological: Normal gait, Normal speech, Strength at 5/5 X4 ext, Normal tone, Sensation intact, Cranial nerves 3-12 NL, Reflexes 2+ - Labs Result Diagrams: 09/12/19 06:00 09/12/19 06:00 Lab results: Laboratory Results - last 24 hr 09/13/19 04:09: Vancomycin Trough 14.0 Status: lab reviewed by me A/P - Problem (1) Squamous cell carcinoma of lung, stage IV Current Visit: Yes Code(s): C34.90 - MALIGNANT NEOPLASM OF UNSP PART OF UNSP BRONCHUS OR LUNG Status: Chronic Qualifiers: Laterality: right Qualified Code(s): C34.91 - Malignant neoplasm of unspecified part of right bronchus or lung (2) Moderate dehydration Current Visit: Yes Code(s): E86.0 - DEHYDRATION Status: Resolved - Plan Plan: improved with fluids home when ok with other MD's follow-up Monday for treatment and IVF prn
[2019-09-13] MEDS ORDERED: Melatonin 3 MG TAB PO SCH (21:00)
[2019-09-14] MEDS: Cefepime 1 GM in Sodium Chloride 0.9% 100 ML IVPB SCH (04:08)
[2019-09-14] MEDS: Vancomycin HCl 1.25 GM in Sodium Chloride 0.9% 250 ML 250 ML IVPB SCH (05:42)
[2019-09-14] MEDS: Acetaminophen 325 MG TAB PO PRN (05:42)
[2019-09-14 07:42] VITALS: BP 123/76; TEMP 98.4
[2019-09-14] MEDS: Sodium Chloride 0.9% 1,000 ML IV SCH (08:40)
[2019-09-14] MEDS: Multivit, Therapeutic 1 TAB PO SCH (08:41)
[2019-09-14] MEDS: Famotidine 20 MG TAB PO SCH (08:41)
[2019-09-14] MEDS: Enoxaparin Sodium 40 MG/0.4 ML SYRINGE SC SCH (08:41)
[2019-09-14] MEDS ORDERED: Cefdinir 300 MG CAP PO SCH (09:00)
--- NOTE | 2019-09-14 16:14 | DIS ---
DATE OF ADMISSION: 09/11/2019 DATE OF DISCHARGE: 09/14/2019 DISCHARGE DISPOSITION: To home. PRIMARY DISCHARGE DIAGNOSIS: Fever with immunocompromised status on chemotherapy/sepsis, resolving. SECONDARY DISCHARGE DIAGNOSIS: Squamous cell carcinoma, lung, stage IV with complete atelectasis of right lung. Moderate dehydration, resolved. PROCEDURES DONE DURING HOSPITALIZATION: Chest x-ray done showed complete opacification of right lung with history of prior lung cancer on the same side. Blood cultures x2, no growth. Urine culture, no growth. Respiratory culture showed normal respiratory lisandro. White count of 4, H and H 10 and 30, platelet count 426, MCV is 87 with 75% neutrophils. Electrolytes stable. BUN 10, creatinine 0.8. Albumin is 3.3. Lactic acid 2.5 on admission. INPATIENT CONSULT: 1. Dr. Francis Bowles for Oncology. 2. Dr. Vasques for Pulmonology. DISCHARGE MEDICATIONS: 1. Omnicef 300 mg p.o. twice daily for 5 days. 2. Albuterol inhaler q.6 hourly p.r.n. 3. Multivitamin one tablet once daily. 4. Mylanta p.r.n. ALLERGIES: NO KNOWN DRUG ALLERGIES. DISCHARGE PLAN: The patient to follow up with Dr. Francis Bowles on Monday. He needs to follow up with Dr. Vasques in a week for possible bronchoscopy. BRIEF COURSE DURING HOSPITALIZATION: The patient initially got admitted on the with a fever of 101.4 degrees. The patient is immunocompromised with him being on chemotherapy and immunotherapy for lung cancer. In view of this history, he was admitted to medical floor. Baugh-cultures were obtained. He was on broad-spectrum antibiotics. The patient's chest x-ray showed complete opacification of right lung. He has not had any prior surgeries on that side. He has had prior radiation along with chemo, and he is currently on chemo and immunotherapy as well. The baugh-cultures were negative. The patient's fever has completely subsided. He has been cleared for discharge by Oncology and Dr. Vasques as well. The patient needs to follow up with Dr. Vasques for outpatient bronchoscopy in the following week. The patient has right lung cancer with left cervical chain of lymph nodes being involved as well with likely nodules in the left lung as well, he has stage IV. Prior to discharge, he is eating and ambulating well. Please note, I have seen and examined the patient on the day of discharge. Job ID: [id number]
== END 2019-09-14 10:42 | disposition home or self-care (01) | DRG 872 ==
LOC: ERS 15:12 → T4-B 17:00
PROVIDERS: ADMIT Internal Medicine; ATTEND Internal Medicine
DX: A41.9 Sepsis, unspecified organism (principal); J98.11 Atelectasis; C34.91 Malignant neoplasm of unspecified part of right bronchus or lung; C77.0 Secondary and unspecified malignant neoplasm of lymph nodes of head, face and neck; E86.0 Dehydration; D89.9 Disorder involving the immune mechanism, unspecified; Z79.899 Other long term (current) drug therapy; Z87.891 Personal history of nicotine dependence
CPT/HCPCS: 36415; 71046; 80053; 80202; 81003; 83605; 85025; 87040; 87070; 87086; 87205; 96365; 96366; 96367; J0692; J1956; J3370; J3490; J7050

== ENCOUNTER 2019-10-10 09:11 | Outpatient (CLI) | payer MEDICARE ==
--- NOTE | 2019-10-10 09:33 | RAD ---
2 view chest: [10/10/2019] Comparison:09/11/2018 HISTORY: Lung cancer FINDINGS: Stable complete opacification of the right hemithorax with mediastinal shift to the right. No pneumothorax. Prominent anterior wedge compression fracture at T12, similar when compared to the sixth 02/21/2020 exam. Mild increased reticulonodular densities suspected in the left lower lobe [place] on laterally. IMPRESSION: Stable complete opacification of the right hemithorax with shift of mediastinal structure s to the right. Subtle reticular nodular densities in the left base suggests possible development of mild inflammatory/infectious pneumonitis. Short-term follow-up imaging is advised.
== END 2019-10-10 09:12 | disposition home or self-care (01) ==
LOC: BICRAD 09:11
PROVIDERS: ATTEND Internal Medicine Hematology & Oncology
DX: C34.01 Malignant neoplasm of right main bronchus (principal); R50.9 Fever, unspecified; R91.8 Other nonspecific abnormal finding of lung field; J98.4 Other disorders of lung
CPT/HCPCS: 71046

== ENCOUNTER 2019-10-18 09:02 | Outpatient (CLI) | payer MEDICARE ==
--- NOTE | 2019-10-18 11:10 | PET ---
EXAM: PET CT skull apex to mid thigh COMPARISON: 05/16/2019 HISTORY: Malignant neoplasm of the right main bronchus of the lung TECHNIQUE: A PET/CT was performed from the apex of the skull skull to the mid thigh after administrat ion of 11.3 millicuries of F-18 FDG. Evaluation was performed on a [employer] workstation. FINDINGS: NECK: There is a 2.9 cm left infraclavicular lymph node with max SUV value of 10.7. CHEST: Complete opacification of the right thorax is seen associated with volume loss. Much more exte nsive hypermetabolic activity is seen within the collapsed lung with max SUV value of 8.2. This has become confluent compared to the prior exam where there is just scattered foci of hypermetabolic acti vity. Mediastinal lymph nodes as follows: Subcarinal lymph node--Max SUV value a 3.8 Bilateral hilar lymph nodes--Max SUV value of 3.2 Hypermetabolic activity is seen in the superior mediastinum anterior to the aorta with max SUV value of 6.1. ABDOMEN/PELVIS: Physiologic hypermetabolic activity is seen in the right colon. SKELETON: No areas of hypermetabolic activity CT images used for attenuation correction show no significant abnormality. IMPRESSION: 1. Worsening of hypermetabolic activity within the collapsed right lung 2. Worsening of hypermetabolic activity in the left infraclavicular lymph node 3. Mediastinal hypermetabolic activity likely represents metastatic disease.
== END 2019-10-18 09:03 | disposition home or self-care (01) ==
LOC: PET 09:02
PROVIDERS: ATTEND Internal Medicine Hematology & Oncology
DX: C34.01 Malignant neoplasm of right main bronchus (principal); J98.19 Other pulmonary collapse
CPT/HCPCS: 78815; A9552

== ENCOUNTER 2019-11-08 01:49 | Inpatient (IN) | payer MEDICARE, OTHER ==
[2019-11-08 02:36] LABS: Hemoglobin 10.1 g/dL (14.0-18.0); Mean Corpuscular HGB CONC 31.8 g/dL (32.0-36.0); Mean Corpuscular Hemoglobin 28.8 pg (27.0-31.0); Mean Corpuscular Volume 90.7 fL (78.0-98.0); Platelet Count 817 thou/uL (130-400); White Blood Cell (WBC) Count 27.5 thou/uL (4.8-10.8)
[2019-11-08] MEDS ORDERED: Cefepime 2 GM VIAL ONE (02:44)
[2019-11-08] MEDS ORDERED: Vancomycin 1 GM/200 ML BAG ONE (02:46)
[2019-11-08 02:48] LABS: ALT (SGPT) 79 U/L (8-55); AST (SGOT) 21 U/L (5-34); Albumin 3.5 g/dL (3.5-5.0); Alkaline Phosphatase 246 U/L (40-110); Anion Gap 21 mmol/L (10-20); BUN (Urea Nitrogen) 21 mg/dL (8.4-25.7); Bilirubin, Total 0.6 mg/dL (0.2-1.2); Calc. Creatinine Clearance 0 mL/min (70-130); Calcium 9.7 mg/dL (7.8-10.44); Carbon Dioxide 20 mmol/L (22-29); Chloride 96 mmol/L (98-107); Estimated GFR-MDRD 63; Globulin 3.8 g/dL (2.4-3.5); Glucose 283 mg/dL (70-105); Potassium 4.4 mmol/L (3.5-5.1); Protein, Total 7.3 g/dL (6.0-8.3); Sodium 133 mmol/L (136-145)
[2019-11-08 02:49] LABS: Band 53 % (5-11); Hypochromia SLIGHT = 6-15 cells (100X) (0-5/hpf); Lymphocytes 4 % (21-51); MDiff Complete? YES; Monocytes 7 % (0-10); Neutrophil 36 % (42-75); Platelet Morphology Comment Appears Increased; Reflex for Review?? YES
[2019-11-08] MEDS ORDERED: Succinylcholine Chloride 20 MG/ML 10 ml SYRINGE FS ONE ×2 (02:53→03:35)
[2019-11-08] MEDS ORDERED: Diltiazem 125 MG/25 ML ONE (02:58)
[2019-11-08] MEDS ORDERED: fentaNYL Citrate/PF 2,000 MCG in Sodium Chloride 0.9% 60 ML IV SCH (03:15)
[2019-11-08] MEDS ORDERED: Propofol 1,000 MG/100 ML VIAL IV ONE ×3 (03:17→11:24)
[2019-11-08 03:37] LABS: SARS-CoV-2 NAA Rapid Test Not Detected (NotDetected)
[2019-11-08] MEDS ORDERED: Digoxin 0.5 MG/2 ML AMP ONE (03:41)
[2019-11-08] MEDS ORDERED: Ketamine 50 MG/ML (10ML VIAL) ONE (03:58)
[2019-11-08] MEDS ORDERED: Acetaminophen 325 MG TAB PO PRN (04:24)
[2019-11-08] MEDS ORDERED: Ondansetron PF 4 MG/2 ML Vial IVP PRN (04:24)
[2019-11-08] MEDS ORDERED: Acetaminophen 650 MG Suppository PR PRN (04:24)
[2019-11-08] MEDS ORDERED: Ondansetron ODT 4 MG TAB PO PRN (04:24)
[2019-11-08 04:26] LABS: Actual Bicarbonate (HCO3a) 20.4 mEq/L (22-28); Analyzer IN Cardio ER; Base Excess (BEa) -9.5 mEq/L (-2.0 to +3.0); Carboxyhemoglobin (COHb) 0.3 gm% (0.0-3.0); Hemoglobin (Hb) 10.5 g/dL (14.0-18.0); Potassium - ABG Lab 4.97 mmol/L (3.70-5.30)
[2019-11-08 04:34] LABS: CO2 Tension 67.3 mmHg (35.0-45.0)
[2019-11-08 04:35] LABS: Calcium, Ionized (arterial) 1.14 mmol/L (1.12-1.30); O2 Tension (PaO2), arterial 56.4 mmHg (> 80.0); Puncture Site L RADIAL
[2019-11-08 04:36] LABS: ALV-art Gradient 572.475 (0-20)
[2019-11-08] MEDS ORDERED: Sodium Chloride 0.9% (PF) 10 ML VIAL FS PRN (04:50)
[2019-11-08] MEDS ORDERED: Bacteriostatic Water 30 ML VIAL FS PRN ×2 (04:56→12:00)
[2019-11-08 05:00] LABS: Magnesium 1.8 mg/dL (1.6-2.6); Phosphorus 5.3 mg/dL (2.3-4.7)
[2019-11-08] MEDS ORDERED: methylPREDNISolone Sod Succ/PF 125 MG/2 ML VIAL IVP SCH ×2 (05:00→12:00)
--- NOTE | 2019-11-08 05:16 | PDOC.FPRHP ---
- History of Present Illness Chief Complaint: Shortness of Breath History of Present Illness: Patient intubated on exam, HPI per ED: 59-year-old male patient presents to the ER via EMS with complaints of shortness of breath. Patient explains that he has metastatic lung cancer and was told that his right lung was all but completely dysfunctional. He explains that he became acutely short of breath this afternoon with worsening symptoms since that time. He denies chest pain. He does say that he has been coughing up brown phlegm. He has been febrile for the past 2 days with a maximum temperature of 101 F. He has been taking Tylenol to treat his fever. Patient explains that he is currently not receiving chemotherapy (5 wk chemo vacation) and will start again next week. Patient's oncologist is Dr. Bowles. ED Course: Patient was placed on nonrebreather mask, then bipap, then intubated with etomidate and succinylcholine per his requests and discussion with ED physician. He is sedated with fentanyl and propofol and receiving duonebs. Patient received Vancomycin 1g and Cefepime 2g. Patient developed tachycardia to 190s with intermittent A fib. He was given loading dose of Digoxin 0.5 mg. - Allergies/Adverse Reactions Allergies Allergy/AdvReac Type Severity Reaction Status Date / Time No Known Allergies Allergy Verified 08/30/17 16:58 - Home Medications Medication Instructions Recorded Confirmed Type Multivitamin [Multi-Vitamin Daily] 1 tab PO DAILY 08/30/17 09/11/19 History Mag Hydrox/Aluminum Hyd/Simeth 10 ml PO PRN PRN 09/11/19 09/11/19 History [Mylanta Maximum Strength Liq] Albuterol Sulfate HFA (OR) 2 puff INH Q6H PRN #1 inh 09/14/19 Rx [Proventil Hfa (or)] Cefdinir [Omnicef] 300 mg PO BID #10 cap 09/14/19 Rx - History PMHx: Metastatic small cell lung cancer PSHx: testicular sx, ear tubes FHx: noncontributory Social: no etoh or drug use, former cigarette smoker, quit <10 yrs ago - Review of Systems ROS unobtainable: due to endotracheal tube - Vital signs BP: 104/68 HR: 174 RR: 20 Tmax: 98.7 Pox: 98% on Vent Wt: 70 kg - Physical Exam -Constitutional: intubated, sedated HEENT: normocephalic and atraumatic, PERRLA Chest: no lesions Heart: no murmurs/rubs/gallops -Heart: Tachycardic, irregular -Lungs: on ventilator, coarse breath sounds on R, no wheezing Abdomen: soft, bowel sounds present, no masses/distention Musculoskeletal: normal structure Skin: no rash/lesions, good turgor, capillary refill <2 seconds Heme/Lymphatic: no unusual bruising or bleeding, no purpura FMR H&P: Results - Labs Result Diagrams: 11/09/19 03:28 11/09/19 03:28 Lab results: WBC 27.5 thou/uL (4.8-10.8) H 11/08/19 02:15 Hgb 10.1 g/dL (14.0-18.0) L 11/08/19 02:15 Hct 31.7 % (42.0-52.0) L 11/08/19 02:15 MCV 90.7 fL (78.0-98.0) 11/08/19 02:15 Plt Count 817 thou/uL (130-400) H 11/08/19 02:15 Band Neuts % (Manual) 53 % (5-11) H 11/08/19 02:15 ABG pH 7.10 (7.35-7.45) L* 11/08/19 04:15 ABG pCO2 67.3 mmHg (35.0-45.0) H* 11/08/19 04:15 ABG pO2 56.4 mmHg (> 80.0) L* 11/08/19 04:15 Sodium 133 mmol/L (136-145) L 11/08/19 02:15 Potassium 4.4 mmol/L (3.5-5.1) 11/08/19 02:15 Chloride 96 mmol/L (98-107) L 11/08/19 02:15 Carbon Dioxide 20 mmol/L (22-29) L 11/08/19 02:15 BUN 21 mg/dL (8.4-25.7) 11/08/19 02:15 Creatinine 1.18 mg/dL (0.7-1.3) 11/08/19 02:15 Glucose 283 mg/dL (70-105) H 11/08/19 02:15 Lactic Acid 3.4 mmol/L (0.5-2.2) H 11/08/19 02:15 Calcium 9.7 mg/dL (7.8-10.44) 11/08/19 02:15 Total Bilirubin 0.6 mg/dL (0.2-1.2) 11/08/19 02:15 AST 21 U/L (5-34) 11/08/19 02:15 ALT 79 U/L (8-55) H 11/08/19 02:15 Alkaline Phosphatase 246 U/L (40-110) H 11/08/19 02:15 Serum Total Protein 7.3 g/dL (6.0-8.3) 11/08/19 02:15 Albumin 3.5 g/dL (3.5-5.0) 11/08/19 02:15 COVID negative - EKG Interpretation EKG: Sinus tach into 180, no evidence for ischemia - Radiology Interpretation Chest x-ray Status: image reviewed by me, report reviewed by me Additional comment: R lung with complete opacification, tracheal deviation to right-consistent with image from 08/20 FMR H&P: A/P - Plan Acute hypercapnic hypoxic respiratory failure - Likely 2/2 bacterial pneumonia, however could also be 2/2 pleural effusion, PE , viral pneumonia - intubated and sedated, admit to CCU - pulmonology consulted - continue Vanc, cefepime - Sedation per CCU protocol - CXR QD - CTA chest Severe sepsis - Vanc and Cefepime - likely 2/2 pneumonia - maintenance IVF, received 2L in ED Metabolic and respiratory acidemia - pH 7.1, CO2 67, O2 56, HCO3 20.4 - monitor with ABG/respiratory status A fib-new onset - Loading dose digoxin given concern for hypotension - continue to monitor - likely caused by stress/strain given infection and hypoxia Metastatic small cell lung cancer - follows with Dr. Bowles - palliative care consulted Thrombocytosis - Likely acute phase reactant - therapeutic lovenox - monitor Leukocytosis - likely 2/2 above Anemia - continue to monitor - possibly from chronic disease Dispo: Admit to CCU, LOS> 48 hrs Lines: 2 PIV, ET tube, OG tube GI ppx: protonix DVT PPX: Lovenox therapeutic Diet: NPO PCP: CC, none listed FMR H&P: Upper Level - Plan Date/Time: 11/08/19 0516 IGodfrey DO, have evaluated this patient and agree with findings/plan as outlined by international student advisor resident. Pertinent changes/additions are listed here. 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 He reports increased coughing, brown phlegm, and a fever for the last few days. Once in the ER, he had progressive SOB, dyspnea, and anxiety related until he requested intubation (etomidate and succ). Shortly after intubation his heart rate when from sinus tachycardia to atrial fibrillation with rates in the 180s-190s. He received a loading dose of digoxin and with time his rate improved. He also received duonebs, Vanc 1g, Cefepime 2g , NS 2100 L bolus, and was started on a propofol/fentanyl drip. Objective: Vitals: BP 104/68, HR 174, RR 24, Temp 98.7, SpO2 98% on RA, Wt 70 kg Gen: Sedated and intubated HEENT: ET/OG tube in place Cardio: tachycardic Respiratory: Coarse breath sounds on the left, diminished on the right A/P Acute hypoxic hypercapnic respiratory failure 2/2 PNA and lung cancer, consider CTA chest for PE -Admit to ICU -Continue mIVFs -Continue vanc and cefepime -Continue ventilator support -IV solumedrol -Pulmonology consulted -CXR consistent with CXR in August - lovenox for clot risk Respiratory and metabolic acidemia -LA 3.4, pH 7.1, Pco2 67, Po2 54 -2/2 above Sepsis 2/2 above -S/P fluids and abx -As above Leukocytosis -Likely 2/2 above, will monitor Thrombocytosis -Stress vs dehydration, will monitor Anemia -Will monitor Atrial fibrillation vs a flutter -S/P digoxin -Continue 0.25mg IV q6 for now Squamous cell carcinoma of the lung stage IV -Consult Dr. Bowles BPH vs. urethral strictures Code: Full Prophylaxis: protonix and lovenox Family: Daughter is MPOA, Dr. Kruger discussed pt's condition with her Fluids: LR 120ml/hr Drips: Propofol 20 Lines: ET/OG, 2 peripheral lines Vent settings: SIMV 24, TV 400, PS 15, FIO2 100, PEEP 8 Disposition: DC in 3-4 days, pending palliative consult PCP: CC Addendum - Attending - Attending Attestation Date/Time: 11/20/19 1004 I personally evaluated the patient and discussed the management with . [] I agree with the History, Examination, Assessment and Plan documented above with any addition or exceptions noted below. See my dictated H&P for details.
[2019-11-08 05:40] LABS: Lactic Acid 4.3 mmol/L (0.5-2.2)
[2019-11-08 05:46] LABS: Troponin I 0.036 ng/mL (< 0.028)
[2019-11-08 06:04] LABS: Bacteria/HPF 1+ HPF (None Seen); Bilirubin Negative (Negative); Blood, Urine Negative (Negative); Clarity Turbid (Clear); Glucose, Urine (Dipstick) Normal (Negative); Ketone, Urine Trace mg/dL (Negative); Leukocyte Negative Leu/uL (Negative); Mucous/LPF Rare LPF (<2+); Nitrite Negative (Negative); Protein, Urine (Dipstick) 50 mg/dL (Neg-Trace); RBC/HPF 0-3 HPF (0-3); Specific Gravity, Urine 1.026 (1.002-1.036); Squamous Epithelial 0-3 HPF (0-3); Urobilinogen Normal mg/dL (Less than 2); WBC/HPF 0-3 HPF (0-3)
--- NOTE | 2019-11-08 06:13 | HP ---
CHIEF COMPLAINT: Shortness of breath. HISTORY OF PRESENT ILLNESS: I have reviewed the case and documentation and discussed the management of the patient with doctors Cheng and Garcia. I agree with the documentation, their H and P unless otherwise stated in the following attestation. In summary, Mr. Lopez is an unfortunate 59-year-old with a known past medical history of non-small cell carcinoma of the right lung and an extensive smoking history. Per the ER report, he presented via EMS with a chief complaint of shortness of breath and cough. The patient has a known right lung that has been completely collapsed as a result of his cancer. ER report states that he became acutely short of breath this afternoon, has worsened during this time. He has had increased sputum production. He has been experiencing fevers for the past two days with a maximum temperature of [address] The patient sees Dr. Bowles from oncology. ER COURSE: While in the ER, the patient acutely decompensated from a respiratory standpoint requiring endotracheal intubation and mechanical ventilation. He has received broad-spectrum antibiotic coverage with vancomycin and cefepime. He has also received a 2 L fluid bolus at this time. He was given a trial of BiPAP in the ER, but failed, which prompted endotracheal intubation. Routine labs and imaging were obtained. Blood cultures have been drawn at this time. Please see resident note for past medical, surgical, social, and family history. FOCUSED PHYSICAL EXAMINATION: VITAL SIGNS: Blood pressure 128/95, pulse 115, respiratory rate 18 to 24 on mechanical ventilation, tidal volume was 400, PEEP of 8 cm of water. His pressure support is 15, FiO2 100%. GENERAL: Intubated, sedated. ENT: Pupils equal, round, reactive. PULMONARY: Coarse breath sounds heard throughout all lung funes. Markedly decreased respiratory sounds on the right side. CARDIOVASCULAR: Tachycardic, regular rhythm. No murmurs or rubs or gallops appreciated. ABDOMEN: Nondistended. SKIN: Warm, dry, and intact without obvious lesions. PERTINENT LABORATORY FINDINGS: ABG after endotracheal intubation, pH 7.100, pCO2 67.3, pO2 56.4, bicarb 20.4. ABG electrolytes are unremarkable. SARS COVID-2 rapid swab negative. Troponin negative, white blood cell count 27, hemoglobin 10.1, platelets 817, bands 73%. Sodium 133, potassium 4.4, chloride 96, bicarb 20, anion gap 21, creatinine 1.18, GFR 63. Lactic acid 3.4. EKG reviewed by me is sinus tachycardia and rate in the 140s. Normal intervals. IMAGING: Chest x-rays reviewed by me. Chest x-ray #1, preintubation showed complete opacification of the right lung field. CXR #2, Initial post intubation, complete opacification of the right lung field is again noted with endotracheal tube placed at the level of the shanae. CXR #3 Opacification of the right lung funes noted again. Endotracheal tube had been withdrawn at that point and was between the shanae and the clavicles. In all three chest x-rays, there is rightward deviation of the trachea. PET scan from 10/17 showed worsening metabolic activity within the right lung field. ASSESSMENT: Mr. Lopez is a 59-year-old gentleman with known stage III to stage IV non-small cell lung cancer. He presented to the ER via EMS with worsening with worsening shortness of breath and cough. While in the ER, he acutely decompensated requiring endotracheal intubation and mechanical ventilation per his wish per ER report. PLAN: As follows: 1. Acute hypoxic hypercapnic respiratory failure secondary to community-acquired pneumonia versus postobstructive pneumonia verses COPD exacerbation. We will continue supportive care with mechanical ventilation. His rate has been increased as has his PEEP. We will start steroids. Continue broad-spectrum antibiotic coverage with vancomycin and cefepime. Blood cultures have been taken at this time. Pulmonology has been consulted and will see him in the morning. Family has been contacted and patient's daughter who is a POA is coming to the hospital to see him at this time. Daughter still wants full resuscitative measures and aggressive management of his illness at this time. 2. Tachyarrhythmia. The patient has received IV digoxin in the ER for rates in excess of 140-150. It appears to be either sinus tachycardia or an atrial fibrillation with RVR. After 1 dose digoxin, his pulse has slowed into the 110s and appears regular at this time. We will continue digoxin for now. As long as his blood pressure and MAPS remain stable, we could consider starting on a diltiazem drip. 3. Stage IV squamous cell carcinoma of the lung. This patient has carried this diagnosis for approximately the past 2 years and is followed by Dr. Bowles of Oncology. 4. We will place him on a therapeutic dose of anticoagulation for VTE prophylaxis at this time. If his respiratory status decompensates, we will consider obtaining a CTA of the chest to evaluate for pulmonary embolus. 5. See resident's note for chronic medical conditions. 6. Disposition and estimated length of stay. He was admitted under inpatient status and placed in the ICU. Length of stay is likely greater than two midnights. However, given his known advanced squamous cell carcinoma of the lung, his overall prognosis at this time is guarded. Approximately 40 minutes of critical care time were spent in care of this patient by me. Job ID: [id number] MTDD
--- NOTE | 2019-11-08 06:50 | RAD ---
RADIOGRAPH CHEST 1 VIEW: DATE: 11/08/2019 TIME: 2:25 AM HISTORY: 59-year-old male with dyspnea and fever COMPARISON: 10/10/2019 FINDINGS: Again noted is the total opacification of the right hemithoracic cavity, with ex vacuo severe cardiom ediastinal shift to the right. There is worsening patchy alveolar infiltrates in the left lower lung zone. No pulmonary edema. No pn eumothorax. IMPRESSION: 1) interval worsening of pneumonia in the left lower lung zone. 2) chronic total opacification of the right hemithoracic cavity with severe cardiomegaly mediastinal shift to the right
--- NOTE | 2019-11-08 06:52 | RAD ---
RADIOGRAPH CHEST 1 VIEW: DATE: 11/08/2019 TIME: 3:21 AM HISTORY: 59-year-old male status post intubation for respiratory failure, dyspnea, and fever COMPARISON: 11/08/2019 2:25 AM FINDINGS: New endotracheal tube with distal tip at mid thoracic trachea. New esophagogastric tube courses below the diaphragm. Interval increase in density of focal consolidation at left lower lung zone. Surrounding less dense i nfiltrates remain. No pulmonary edema. No pneumothorax. IMPRESSION: 1) status post intubation. 2) interval worsening of left lower lung zone pneumonia.
--- NOTE | 2019-11-08 06:59 | RAD ---
RADIOGRAPH CHEST 1 VIEW: DATE: 11/08/2019 TIME: 3:28 AM HISTORY: 59-year-old male with dyspnea. Tube adjustment. COMPARISON: 11/08/2019 3:21 AM FINDINGS: Endotracheal tube has been retracted by 3.5 to 4 cm into the upper thoracic trachea, approximately 6 cm superior to the shanae. There has been no other interval change. IMPRESSION: Retraction of the endotracheal tubeinto upper thoracic trachea.
--- NOTE | 2019-11-08 07:01 | RAD ---
Radiograph abdomen one view: 11/08/2019 4:26 AM HISTORY: 59-year-old male status post NG tube placement. FINDINGS: NG tube distal tip is at the curvature of the mid body of the stomach. The stomach is very distended with gas. There is no evidence of small bowel obstruction. IMPRESSION: 1. Esophagogastric tube distal tip at mid corpus. 2. gaseous gastric distention.
--- NOTE | 2019-11-08 07:16 | CT ---
CTA CHEST WITH CONTRAST: Date: 11/08/2019 COMPARISON: PET/CT 10/18/2019. HISTORY: Shortness of breath. Patient has metastatic lung cancer. TECHNIQUE: Multiple contiguous axial images were obtained in a CTA of the chest with contrast per lmonary embolism protocol. 3D oblique MIP reformats and direct coronal reformats were performed. FINDINGS: There is complete opacity of the right thorax. This is predominantly from volume loss. There is a com plex fluid collection in the superior aspect of the right thorax which contains bubbles of air and ar eas of enhancement. These bubbles of air are new compared to the prior examination. There is occlusion of the right main pulmonary artery at the right hilar region. This may be secondar y to prior surgery or secondary to the patient's right lung malignancy. No pulmonary emboli are seen in the left pulmonary arteries. There are multifocal opacities in the left lung. These are more predominant in the left lower lobe, b ut are also seen in the left upper lobe. These are slightly peripheral in location and could be secon matt to COVID pneumonia. No pleural effusion is seen on the left. No hilar or mediastinal lymphadenopathy seen. An endotracheal tube is seen with its tip above the car lori. A NG tube is seen in the stomach. There is continued enlargement in the left infraclavicular lymph node. The visualized subdiaphragmati c structures are unremarkable. Degenerative changes are seen in the spine. IMPRESSION: 1. Interval development of infiltrates in the left lung. This may represent COVID pneumonia. 2. There is a collapsed right lung. There are new bubbles of air within the collapsed right lung. Th is could be secondary to aeration of portions of the lung. A superinfection in the collapsed right lorri ng is also a possibility. 3. Continued enlargement of left infraclavicular lymph node. POS: EAA
[2019-11-08] MEDS ORDERED: methylPREDNISolone Sod Succ/PF 125 MG/2 ML VIAL ONE (07:27)
[2019-11-08] MEDS: Lactated Ringer's 1,000 ML IV SCH ×4 (07:42→23:01)
[2019-11-08 09:00] LABS: Troponin I 0.038 ng/mL (< 0.028)
[2019-11-08] MEDS ORDERED: Enoxaparin Sodium 40 MG/0.4 ML SYRINGE SC SCH (09:00)
[2019-11-08 09:02] LABS: Lactic Acid 4.5 mmol/L (0.5-2.2)
[2019-11-08] MEDS ORDERED: Pantoprazole 40 MG VIAL ONE (09:09)
[2019-11-08] MEDS ORDERED: Enoxaparin Sodium 80 MG/0.8 ML SYRINGE ONE (09:09)
[2019-11-08] MEDS: Enoxaparin Sodium 80 MG/0.8 ML SYRINGE SC SCH ×2 (09:13→21:41)
[2019-11-08] MEDS: Pantoprazole 40 MG VIAL IVP SCH ×2 (09:16→21:42)
[2019-11-08] MEDS ORDERED: Vancomycin 1.5 GRAM/300 ML BAG 1.5 GM in Premix Bag 1 BAG IVPB SCH (11:00)
[2019-11-08 11:07] VITALS: BMI 19.7
[2019-11-08] MEDS: methylPREDNISolone Sod Succ 40 MG VIAL IVP SCH ×3 (11:25→23:02)
[2019-11-08] MEDS: Vancomycin 1 GM in Premix Bag 1 BAG IVPB SCH ×2 (11:26→22:56)
[2019-11-08] MEDS ORDERED: EPINEPHrine 1 MG/10 ML Abboject SYRINGE ONE (11:58)
[2019-11-08] MEDS ORDERED: Iopamidol-370 76% 500 ML 1 ML ONE (12:20)
[2019-11-08 12:33] LABS: Lactic Acid 3.4 mmol/L (0.5-2.2)
[2019-11-08] MEDS: Digoxin 0.5 MG/2 ML AMP SLOW IVP SCH ×2 (14:08→17:26)
[2019-11-08] MEDS ORDERED: Cefepime 2 GM in Sodium Chloride 0.9% 100 ML IVPB SCH (15:00)
--- NOTE | 2019-11-08 16:12 | CON ---
DATE OF CONSULTATION: REASON FOR CONSULTATION: Squamous cell carcinoma. HISTORY OF PRESENT ILLNESS: Mr. Lopez has stage IV squamous cell carcinoma of the right lung. He was originally diagnosed in 2017. He has undergone treatment with cisplatin, etoposide, Imfinzi, and most recently carboplatin, Abraxane, and Keytruda. He has also had radiation in the past. He was in remission for about 6 months when he recurred earlier this year. He started the carboplatin, Abraxane, and Keytruda in June. He had a PET scan in October, that showed a mixed response with improvement in the supraclavicular mass and worsening right thorax hypermetabolic activity. He had a stable mediastinal lymphadenopathy. He received maintenance Keytruda. Last dose was on 10/22. He has been having intermittent fever over the last several weeks. He has been on Levaquin and doxycycline. He has been COVID negative. He presented to the emergency room yesterday with worsening shortness of breath and ended up having respiratory failure, requiring intubation. The patient was seen in the ICU. He is sedated with Diprivan. His vital signs are currently stable. He did undergo a CT chest angio, which showed infiltrates in the left lung. There was also a collapsed right lung and enlargement of the left infraclavicular lymph node. PAST MEDICAL HISTORY: Stage IV squamous cell carcinoma of the lung. PAST SURGICAL HISTORY: 1. Testicular surgery. 2. Ear tubes in the past. ALLERGIES: NO KNOWN DRUG ALLERGIES. HOME MEDICATIONS: 1. Proventil. 2. Multivitamin. 3. Ativan 0.5 mg tablet p.r.n. FAMILY HISTORY: Father had melanoma. SOCIAL HISTORY: , has 2 children. Lives alone. A 65-iadv-ueph history of smoking. REVIEW OF SYSTEMS: Unable to obtain secondary to intubation and sedation. PHYSICAL EXAMINATION: VITAL SIGNS: Temperature 97.5, pulse is 123, respiratory rate is 22, BP is 118/84, and he is 91% on 100% FiO2 on the vent. GENERAL: A chronically ill-appearing male, in no acute distress. HEENT: Normocephalic and atraumatic. NECK: He has a large left supraclavicular mass. CV: Regular rate and rhythm. He is tachycardic. LUNGS: He has rhonchi throughout. ABDOMEN: Soft. EXTREMITIES: There is no clubbing or cyanosis. SKIN: No rash. HEMATOLOGIC: No petechiae or purpura. NEUROLOGIC: He is sedated on the vent. PERTINENT LABORATORY DATA AND X-RAYS: Current WBCs 27.5, hemoglobin 10.1, hematocrit 31.6, and platelet count is 817,000. He has 36% neutrophils, 53% bands, and 4% lymphocytes. Sodium 133, potassium 4.4, chloride is 96, CO2 is 20, BUN is 21, creatinine 1.18, lactic acid is 3.4, and calcium 9.7. Phosphorus 5.3. Magnesium 1.8. Bilirubin 0.6, AST is 21, ALT is 79, and alkaline phosphatase is 246. Troponin is 0.036. Serum total protein 7.3, albumin 3.5, and globulin 3.8. Urine showed 1+ bacteria. He is COVID negative. Radiology per HPI. ASSESSMENT: 1. Respiratory failure. 2. Stage IV squamous cell carcinoma of lung. DISCUSSION: The patient remains supported on the vent. He is 100% FiO2 and saturating okay. He remains tachycardic. He has been started on sedation for comfort. He also has antibiotics. I appreciate Critical Care help in managing John. Palliative Care has seen the patient and had a conversation with the daughter. The plan is to provide supportive care over the weekend and re-evaluate on Monday. Dr. Bowles will be back on Monday and we will discuss this further with him. Thank you for the consult. Job ID: [id number]
--- NOTE | 2019-11-08 16:53 | CON ---
DATE OF CONSULTATION: 11/08/2019 HISTORY OF PRESENT ILLNESS: Jah Lopez is a 59-year-old year old gentleman with known metastatic carcinoma, being followed by Dr. Bowles. He has just finished radiation and chemo. They were supposed to start Keytruda p.o. chemotherapy. He has been feeling bad for the last week with fever and chills and cough. Daughter went to see him yesterday. He had agonal respiration. He was intubated in the ER. He wanted to be intubated. So far, he is a full code. His respiratory rate in the ER was 20. His blood pressure was 129/106, and temperature 98. Presently, he is intubated on ventilator and sedated. Extensive history is well outlined, [id number] carcinoma status post chemo and radiation. He has been seen by a Dr. Hernandez, who no longer is working here. He underwent a bronchoscopy in 2007, had squamous cell carcinoma. PAST MEDICAL HISTORY: 1. COPD. 2. Squamous cell carcinoma with mets. Recent PET scan done as recent as 10/18/2019, shows evidence of worsening hypermetabolic activity in the collapsed right lung, worsening hyperactivity in the left infraclavicular lymph node with mediastinal pleural activity and metastatic disease. PREVIOUS SURGERIES: Noted. HOME MEDICATIONS: Albuterol inhaler. REVIEW OF SYSTEMS: Unobtainable. PHYSICAL EXAMINATION: VITAL SIGNS: Pulse 110, blood pressure 108/80, saturations are 90%, and respiratory rate 20. CHEST: He has decreased breath sounds without any wheezing. CARDIAC: Normal S1 and S2. No gallops. ABDOMEN: Soft. LABORATORY DATA: Blood gas; pO2 was 56, pCO2 of 67, pH 7.10 at 4:00 in the morning. Lactic acid 4.5. Urine was normal. White count was 27,000, hemoglobin and hematocrit 10 and 30, and platelet count 817. Coronavirus status is negative. ASSESSMENT: 1. Respiratory failure with metastatic squamous cell carcinoma. 2. Right lung atelectasis. 3. Fever, probably secondary to underlying postobstructive changes. PLAN: Continue broad-spectrum antibiotics and steroids as outlined. His overall prognosis is grave. The family states they would like to continue treatment for the next several days until we can assess his overall situation. He is on Lovenox, steroids, neb treatment, and antibiotics. We will follow. CRITICAL CARE TIME SPENT: 45 minutes on critical care note. Job ID: [id number]
[2019-11-08] MEDS: Cefepime 1 GM in Sodium Chloride 0.9% 100 ML IVPB SCH (17:26)
--- NOTE | 2019-11-08 17:56 | PDOC.BPN ---
- Brief Progress Note Mr. Lopez's daughter, GIAN, came to see pt with her son. At this time myself and the nurse, Myrtle, updated the family on his current status. She ultimately decided to make the patient chem-only without chest compressions. She thought this would respect his wishes best from their previous discussions. Will place order change in the system. Connor Simon, DO 11/08/19
[2019-11-08] MEDS ORDERED: Norepinephrine 8 MG/0.9% NS 250 ML ONE (21:23)
[2019-11-08] MEDS ORDERED: Norepinephrine 8 MG/0.9% NS 250 ML IVPB SCH (21:30)
[2019-11-09 02:18] VITALS: BP 76/30
[2019-11-09 02:23] VITALS: TEMP 98.6
[2019-11-09] MEDS: Cefepime 1 GM in Sodium Chloride 0.9% 100 ML IVPB SCH (02:51)
[2019-11-09 04:02] LABS: Band 50 % (5-11); Hemoglobin 10.4 g/dL (14.0-18.0); Hypochromia SLIGHT = 6-15 cells (100X) (0-5/hpf); Lymphocytes 2 % (21-51); MDiff Complete? YES; Mean Corpuscular HGB CONC 31.1 g/dL (32.0-36.0); Mean Corpuscular Hemoglobin 29.8 pg (27.0-31.0); Mean Platelet Volume 6.4 fL (7.4-10.4); Metamyelocyte 3 % (0-0); Monocytes 3 % (0-10); Myelocyte 1 % (0-0); Neutrophil 41 % (42-75); Nucleated RBC 4 % (0); Platelet Count 662 thou/uL (130-400); Platelet Morphology Comment Appears Increased; Red Blood Cell (RBC) Count 3.48 mill/uL (4.70-6.10); White Blood Cell (WBC) Count 36.4 thou/uL (4.8-10.8)
[2019-11-09 04:07] LABS: Anion Gap 25 mmol/L (10-20); BUN (Urea Nitrogen) 33 mg/dL (8.4-25.7); Calc. Creatinine Clearance 28 mL/min (70-130); Calcium 8.9 mg/dL (7.8-10.44); Carbon Dioxide 15 mmol/L (22-29); Chloride 103 mmol/L (98-107); Estimated GFR-MDRD 25; Glucose 142 mg/dL (70-105); Potassium 6.6 mmol/L (3.5-5.1); Sodium 136 mmol/L (136-145)
--- NOTE | 2019-11-09 05:33 | PRG ---
DATE OF SERVICE: 11/09/2019 Progress note on . PHYSICAL EXAMINATION: HEENT: Pupils fixed and dilated. CARDIAC: No pulse, no auscultation of heart sounds. RESPIRATORY: No spontaneous respiration. NEURO: No withdrawal to painful stimuli. Time of : 11/09/2019 at 04:21 a.m. PLAN: Okay to remove all lines, okay to release the barrel charrer helper for autopsy. Job ID: [id number]
[2019-11-09] MEDS: Lactated Ringer's 1,000 ML IV SCH (07:12)
[2019-11-09] MEDS: methylPREDNISolone Sod Succ 40 MG VIAL IVP SCH (07:12)
[2019-11-09] MEDS ORDERED: Prevnar 13-Val Conj/PF 0.5 ML SYRINGE IM ONE (09:00)
--- NOTE | 2019-11-11 06:47 | DIS ---
DATE OF ADMISSION: 11/08/2019 DATE OF DISCHARGE: 11/09/2019 ADMITTING ATTENDING: Francis Allen MD DISCHARGING ATTENDING: Glen Constantino MD RESIDENT: Godfrey Zelaya DO DATE OF : 11/09/2019. TIME OF : 0421 hours. CAUSE OF : Acute hypoxic respiratory failure secondary to squamous cell carcinoma of the lung. 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 HOSPITAL COURSE: This is a 59-year-old male with past medical history as above, who presented to the ER yesterday morning on the , in acute hypoxic hypercapnic respiratory failure secondary to squamous cell carcinoma and possibly pneumonia. At that time, he was intubated at his request. In addition, he was found to be in atrial fibrillation with RVR. Started on digoxin. The patient received appropriate fluid resuscitation and was sent to the ICU for further management. Throughout the day, the patient's condition continued to worsen. He was on 100% FiO2 and his oxygen saturation was between 70% and 90% throughout the day. His blood pressures continued to trend down with MAPs as low as the 40s. After multiple family discussions, the patient was a chemical code only. We discussed with the family yesterday evening the next steps for his care. We elected to place the patient on peripheral pressure support to give family more time to grieve and talk with other family members. This morning, at 4 o'clock, the patient went into one of many agonal cardiac rhythms including PEA, polymorphic ventricular tachycardia and finally asystole. Two rounds of epinephrine were given and Levophed was continued for 10 minutes. The patient did not respond to our therapy, and resuscitation efforts were discontinued. Time of as stated above, 0421 hours with family at the bedside. Job ID: [id number]
--- NOTE | 2019-11-11 22:57 | PQF ---
CLINICAL DOCUMENTATION CLARIFICATION FORM: Dear : ____Glen Cardenas MD Date / Time: ____11/11/2019__ _22:55 Please exercise your independent, professional judgment in responding to the clarification form. Clinical indicators are provided on the bottom of this form for your review Please check appropriate box(es) to clarify if the following diagnosis has been ruled in our ruled out: Sepsis [ X] Ruled in diagnosis [ X] Continue to treat [ ] Resolved [ ] Ruled out diagnosis [ ] Improving [ ] Cannot rule out diagnosis [ ] Other diagnosis [ ] Unable to determine Physician Signature: Date/Time: For continuity of documentation, please document condition throughout progress notes and discharge summary. Thank You. To be completed by CDI/Coding staff for physician review: w Present w Clinical Indicators - Signs / Symptoms / Labs w Results and Location in Medical Record w [ x] w Sepsis-unspecified w ED record, 11/07, Delphine Recio MD w [ x] w WBC: 27.5H, 36.4H w Laboratory report, 11/07 w [ x] w RR:24H, 35H, 39H w Vital signs, 11/07, 11/08 w [ x] w Pulse: 103H, 128H on 11/07, 114H w Vital signs, 11/07, 11/08 w [ x] w Severe sepsis likely 2/2 pneumonia w Family medicine H&P, 11/07, Efrain Kruger MD w Present w Risk Factors w Results and Location in Medical Record w [x] w Acute hypoxic hypercapnic respiratory failure w H&P, 11/07, Francis Haley MD w [x] w Community-acquired pneumonia w H&P, 11/07, Francis Haley MD w Present w Treatments w Results and Location in Medical Record w [ x] w Vancomycin.IV w JUN, 11/07 w [ x ] w Levaquin.IV w JUN, 11/07 w w w w w w [employer] Signature: art Mendoza Phone #: [phone] Date/Time:_ 11/11/2019 22:55 This is a permanent part of the Medical Record [facility]
--- NOTE | 2019-11-21 15:32 | EKG ---
Test Reason : SOB Blood Pressure : / mmHG Vent. Rate : 140 BPM Atrial Rate : 140 BPM P-R Int : 126 ms QRS Dur : 070 ms QT Int : 268 ms P-R-T Axes : 053 049 066 degrees QTc Int : 409 ms Sinus tachycardia Otherwise normal ECG Confirmed by ELPIDIO HARDY ([id number]), medical editor NOELLE HUGHES ([id number]) on 11/21/2019 3:31:17 PM Referred By: Confirmed By:ELPIDIO HARDY
== END 2019-11-09 04:21 | disposition expired | DRG 871 ==
LOC: ERS 01:49 → ERHOLD 04:14 → CCU 10:56
PROVIDERS: ADMIT Family Medicine; ATTEND Family Medicine
PROC: 0BH17EZ Insertion of Endotracheal Airway into Trachea, Via Natural or Artificial Opening (ICD-10-PCS; principal; 2019-11-08)
PROC: 5A1935Z Respiratory Ventilation, Less than 24 Consecutive Hours (ICD-10-PCS; 2019-11-08)
DX: A41.9 Sepsis, unspecified organism (principal); J96.01 Acute respiratory failure with hypoxia; J18.9 Pneumonia, unspecified organism; J96.02 Acute respiratory failure with hypercapnia; C34.91 Malignant neoplasm of unspecified part of right bronchus or lung; J98.11 Atelectasis; J44.0 Chronic obstructive pulmonary disease with (acute) lower respiratory infection; C77.9 Secondary and unspecified malignant neoplasm of lymph node, unspecified; C78.2 Secondary malignant neoplasm of pleura; E87.4 Mixed disorder of acid-base balance; I47.2 Ventricular tachycardia; Z51.5 Encounter for palliative care; I46.9 Cardiac arrest, cause unspecified; D64.81 Anemia due to antineoplastic chemotherapy; Z20.828 Contact with and (suspected) exposure to other viral communicable diseases; I48.91 Unspecified atrial fibrillation; D63.1 Anemia in chronic kidney disease; D47.3 Essential (hemorrhagic) thrombocythemia; Z79.01 Long term (current) use of anticoagulants; Z87.891 Personal history of nicotine dependence
CPT/HCPCS: 31500; 36415; 36416; 51703; 71045; 71275; 74018; 80048; 80053; 81003; 81015; 82805; 83605; 83735; 84100; 84145; 84484; 85025; 85060; 87040; 87086; 92950; 93005; 94002; 94003; 94640; 96365; 96366; 96367; 96375; 96376; 99292; C9113; J0171; J0692; J1160; J1650; J1956; J2704; J2920; J2930; J3010; J3370; J3490; J7620; Q9967; U0002